=== PATIENT | male | born 1935 | race Caucasian/White ===

== ENCOUNTER 2021-04-08 10:07 | Emergency (ER) | payer MEDICARE, SELFPAY ==
--- NOTE | ~2021-04-08 | XR_ITS ---
EXAMINATION: XR ankle LT min 3V DATE: 04/08/2021 10:42 INDICATION: Medial left ankle pain TECHNIQUE: Anteroposterior, oblique, mortise, and lateral views of the left ankle were obtained. COMPARISON: None. FINDINGS: There is suggestion of pes planus and hindfoot valgus although this is not diagnostically evaluated o n nonweightbearing imaging. No acute traumatic malalignment. Very small now corticated nonunited avul mario fracture fragment along the dorsal rim of the navicula. No acute fracture. Mild osteoarthritis a t several of the tarsal metatarsal joints. Tiny plantar calcaneal spur. No ankle joint effusion. Sof t tissue swelling with subcutaneous edema about the ankle and distal lower leg. IMPRESSION: 1. Small no nonunited chronic avulsion fracture fragment along the dorsal rim of the navicula. No acu te osseous abnormality. 2. 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 Reviewed, dictated and finalized at location A. IMPRESSION: 1. Small no nonunited chronic avulsion fracture fragment along the dorsal rim o f the navicula. No acute osseous abnormality. 2. 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
[2021-04-08 10:12] VITALS: BP 166/72; PULSE 58; RESP 20; TEMP 36.7; O2SAT 98
--- NOTE | 2021-04-08 10:35 | ED.LOWEXIN ---
HPI - Extremity Injury (Lower) General Chief Complaint: Extremity Injury, Lower Stated Complaint: lt ankle pain Time Seen by Provider: 04/08/21 10:21 Source: patient and RN notes reviewed Mode of arrival: ambulatory Limitations: no limitations History of Present Illness HPI Narrative: Patient presents today complaining of sharp pain to the medial left ankle that started this morning as he was walking on the treadmill at the [facility]. Patient has been dealing with left ankle pain for the past 2 months under the care of his blueprint machine operator. Patient has been told that he has a tendon problem , causing his pain and has been wearing an ankle brace, mostly when he mows the grass, as this is when his ankle pain is exacerbated the most. States that prior to walking on the treadmill this morning, his ankle was pain-free. He did not fall this morning, but states the pain came out of nowhere. His ankle is essentially pain-free at rest, but increases with any weightbearing. Currently rates his pain 4/10 with weightbearing. Reports he called his blueprint machine operator this morning but was told they could not fit him in. He does have an appointment set up in 7 days. And he was told to seek treatment if he believed he had a serious injury. MD complaint: ankle injury Related Data Home Medications Medication Instructions Recorded Confirmed allopurinol 100 mg PO DAILY 04/08/21 04/08/21 amlodipine 5 mg PO DAILY 04/08/21 04/08/21 atenolol 50 mg PO DAILY 04/08/21 04/08/21 lisinopril 40 mg PO DAILY 04/08/21 04/08/21 Allergies Allergy/AdvReac Type Severity Reaction Status Date / Time No Known Allergies Allergy Unverified 04/08/21 10:17 Review of Systems Review of Systems: Narrative: CONSTITUTIONAL: Denies body aches, fever, chills, or sweats. EYES: Denies visual changes, redness, or discharge. ENT: Denies rhinorrhea, congestion, sore throat, or otalgia. CARDIOVASCULAR: Denies chest pain, palpitations, or edema. RESPIRATORY: Denies cough or dyspnea. GASTROINTESTINAL: Denies abdominal pain, nausea, vomiting, or diarrhea. GENITOURINARY: Denies dysuria or hematuria. SKIN: Denies rash, itching, or wounds. MUSCULOSKELETAL: Denies back pain, or myalgia. + Left ankle injury NEUROLOGIC: Denies headache, numbness, tingling, or weakness. PSYCH: Denies depression or anxiety. [facility] Past Medical History Medical History (Updated 04/08/21 @ 11:55 by Danelle Vega, [employer], ) Gout Hypertension Renal carcinoma Surgical History Surgical History (Updated 04/08/21 @ 11:55 by Danelle Vega, [facility], ) History of nephrectomy Comments At time of signature, I have reviewed and agree with nursing past medical, surgical, social and family history unless otherwise noted. Please see nursing chart for further information. There is no relevant family history pertinent to the presenting complaint Exam Narrative: Exam Narrative: GENERAL: Well-appearing, well-nourished, and in no acute distress. HEAD: Normocephalic, atraumatic. EYES: EOMI. No redness or drainage. Conjunctivae normal. ENT: Mucous membranes pink and moist. NECK: Normal AROM. CHEST: No respiratory distress. EXTREMITIES: Left ankle: Tenderness to the medial ankle. No other tenderness about the ankle or foot. Patient does have some 1+ edema to the ankle and foot, but this is bilateral and baseline per patient. Distal sensation intact. Capillary refill normal. Pedal pulse normal. Full AROM ankle and toes. No ecchymosis or erythema noted. SKIN: Warm, dry, no rash. Capillary refill normal. Normal skin turgor. NEURO: No focal deficits. Alert and oriented x3. Gait steady. PSYCH: Normal affect. No signs of depression or anxiety. Course Vital Signs Vital signs: Vital Signs Temperature 98.0 F 04/08/21 10:12 Pulse Rate 58 L 04/08/21 10:12 Respiratory Rate 20 04/08/21 10:12 Blood Pressure 166/72 H 04/08/21 10:12 Pulse Oximetry 98 04/08/21 10:12 Temperature 98.0 F 04/08/21 1
== END 2021-04-08 11:13 | disposition home or self-care (01) ==
PROVIDERS: Emergency Provider Nurse Practitioner
DX: M25.572 Pain in left ankle and joints of left foot (principal); M10.9 Gout, unspecified; I10 Essential (primary) hypertension; Z85.53 Personal history of malignant neoplasm of renal pelvis
CPT/HCPCS: 73610; 99213; G0463

== ENCOUNTER → 2021-04-18 09:29 | Outpatient (CLI) | payer MEDICARE, SELFPAY ==
--- NOTE | ~2021-04-18 | MR_ITS ---
EXAMINATION: MR ankle LT wo con DATE: 04/18/2021 10:42 INDICATION: Posterior tibial tendinitis. Left ankle pain. TECHNIQUE: Magnetic resonance imaging (MRI) of the left ankle was performed without intravenous contr ast. Sequences included sagittal PD-weighted FS FSE, sagittal PD-weighted FSE, coronal PD-weighted FS FSE, coronal PD-weighted FSE, axial PD-weighted FS FSE, and axial PD-weighted FSE. COMPARISON: Left ankle radiographs 04/08/2021 FINDINGS: Medial ankle ligaments: There are changes of prior sprain of superficial component of the deltoid ligament characterized by t hickening and increased signal intensity. The deep component of the deltoid ligament is intact. Lateral ankle ligaments: There are changes of prior sprain of anterior talofibular ligament characterized by thickening and in creased signal intensity. Calcaneofibular ligament and posterior talofibular ligament are intact. The anterior and posterior tibiofibular ligaments are intact. Tendons: The Achilles tendon is normal. The peroneal tendons and anterior ankle tendons are normal. Posterior tibial tendon is enlarged with increased signal intensity along much of its course. There is focal th inning of posterior tibial tendon at the level of the distal tibia. Plantar fascia: Normal. Bones/other: Pes planus is noted. Talar dome is normal. There is severe osteoarthritis of first and second tarsome tatarsal joints and lateral naviculocuneiform joint. There is mild osteoarthritis of talonavicular lanre int and some of the other midfoot joints. There is edema-like marrow signal intensity in medial malle olus, likely stress reaction. Fluid: There is a small ankle joint effusion. There is subcutaneous edema about the ankle. IMPRESSION: 1. Partial tear of posterior tibial tendon. 2. Pes planus. 3. Polyarticular osteoarthritis. 4. Changes of prior medial and lateral ankle sprains. Reviewed, dictated and finalized at location A.
== END ==
PROVIDERS: Visit Provider Podiatrist Foot & Ankle Surgery
DX: M76.822 Posterior tibial tendinitis, left leg (principal); M19.072 Primary osteoarthritis, left ankle and foot; M21.42 Flat foot [pes planus] (acquired), left foot
CPT/HCPCS: 73721

== ENCOUNTER 2021-06-11 13:46 | Emergency (ER) | payer MEDICARE, SELFPAY ==
[2021-06-11 13:51] VITALS: BP 163/93; PULSE 65; RESP 16; TEMP 36.6; O2SAT 98
--- NOTE | 2021-06-11 13:55 | ED.EAR ---
HPI - Ear Problem General Chief complaint: Ear Stated complaint: clogged ear Time Seen by Provider: 06/11/21 13:56 Source: patient and RN notes reviewed Mode of arrival: ambulatory Limitations: no limitations History of Present Illness HPI Narrative: 86-year-old male presents to the [facility] with complaints of a clogged right ear. Patient states that he sometimes gets earwax buildup and needs it removed however he reports some peroxide yesterday states he had everything out but needs it checked. Denies any headache, nausea, dizziness. No chest pain or shortness of breath. No abdominal pain. MD Complaint: decreased hearing (right ear) Location: right ear Related Data Home Medications Medication Instructions Recorded Confirmed allopurinol 100 mg PO DAILY 04/08/21 04/08/21 amlodipine 5 mg PO DAILY 04/08/21 04/08/21 atenolol 50 mg PO DAILY 04/08/21 04/08/21 lisinopril 40 mg PO DAILY 04/08/21 04/08/21 Allergies Allergy/AdvReac Type Severity Reaction Status Date / Time No Known Allergies Allergy Unverified 04/08/21 10:17 Review of Systems Review of Systems: All systems reviewed & are unremarkable except as noted in HPI and below Constitutional: Constitutional: Reports no additional constitutional complaints, Denies chills and Denies fever(s) Eyes: Eyes: Reports no additional eye complaints and Denies change in vision ENT: Reports as per HPI, Denies dysphagia, Denies vertigo, Denies dizziness, Denies nasal congestion and Denies sore throat Comments: Right eye decreased hearing Cardiovascular: Cardiovascular: Reports no additional cardiovascular complaints and Denies chest pain Respiratory: Respiratory: Reports no additional respiratory complaints Gastrointestinal: Gastrointestinal: Reports no additional gastrointestinal complaints Musculoskeletal: Musculoskeletal: Reports no additional musculoskeletal complaints Integumentary/Breasts: Skin/Breast: Reports system reviewed and no additional complaints, except as docu Neurologic: Reports system reviewed and no additional complaints, except as documented, Denies vertigo, Denies dizziness, Denies syncope, Denies headache(s), Denies focal weakness, Denies numbness and Denies weakness Psychiatric: Psychiatric: Reports no additional psychiatric complaints Allergic/Immunologic: Allergic/Immunologic: Reports no additional allergic/immunologic complaints PMFSH Past Medical History Medical History Gout Hypertension Renal carcinoma Surgical History Surgical History History of nephrectomy Comments At the time of my signature, I reviewed and agree with the nursing past medical, surgical, social, and family history. There is no relevant family history pertinent to the patient complaint. Exam Const: General: healthy appearing, no acute distress and alert Nutritional Appearance: well nourished Orientation/consciousness: patient oriented x3 Limitations: no limitations HENMT: Head: normal to inspection Ears: external ears normal, TM's normal bilaterally and Abnormal EAC present erythema on the right; no cerumen impaction, no excessive cerumen, no edema, no EA tenderness and no otic discharge Eyes: Conjunctivae: conjunctivae normal Pupils: Equal, round and reactive pupils present Neck: Neck: normal visual inspection, no lymphadenopathy and no meningeal signs Chest: Chest palpation & inspection: normal inspection of the chest Resp: Effort & Inspection: normal respiratory effort Auscultation: clear to auscultation bilaterally Cardio: Rate: regular rate Rhythm: regular rhythm Skin: General skin exam: normal color Rashes: no rashes Wounds: no wounds Neuro: General: patient oriented x3, moves all extremities, no meningeal signs and no focal motor deficits Speech: normal speech Gait exam (Neuro): Normal gait present Extrem: General: normal to inspection and no ped
== END 2021-06-11 14:09 | disposition home or self-care (01) ==
PROVIDERS: Emergency Provider Nurse Practitioner
DX: H91.91 Unspecified hearing loss, right ear (principal); S00.411A Abrasion of right ear, initial encounter; X58.XXXA Exposure to other specified factors, initial encounter; I10 Essential (primary) hypertension; M10.9 Gout, unspecified; Z85.528 Personal history of other malignant neoplasm of kidney; Z90.5 Acquired absence of kidney
CPT/HCPCS: 99213; G0463

== ENCOUNTER 2021-10-31 13:14 | Emergency (ER) | payer MEDICARE, SELFPAY ==
[2021-10-31 13:17] VITALS: BP 163/83; PULSE 83; RESP 16; TEMP 36.7; O2SAT 98
--- NOTE | 2021-10-31 13:25 | ED.NAVMDI ---
HPI - Nausea/Vomiting/Diarrhea General Chief complaint: Nausea/Vomiting/Diarrhea Stated complaint: DIARRHEA Time Seen by Provider: 10/31/21 13:27 Source: patient, RN notes reviewed and old records reviewed Mode of arrival: ambulatory Limitations: no limitations History of Present Illness HPI Narrative: 86 year old male who presents to [facility] care with complaints of diarrhea for the past 2-3 days with last stool about one hour ago which was watery. Patient denies any recent antibiotic use, no known fevers chills or sweats. Patient denies any yellow or greenish colored stools or any especially foul odored stools or any blood noted in his stools. He reports that he has had some nausea but denies any vomiting, admits to decreased appetite. He states that he has been drinking a lot of water the past few days, mucous membranes pink. He reports no past history of colitis or diverticulitis, no stated complaints of any pain to abdomen, reports some cramping with stools only. Patient reports that he has not eaten any solid foods for the past 2-3 days. Patient has had COVID vaccinations and Booster and Flu shot also. MD elicited complaint: nausea and diarrhea Location of pain: none Exacerbating factors: eating Relieving factors: none Associated symptoms: loss of appetite and other (nausea) Treatment prior to arrival: none Related Data Home Medications Medication Instructions Recorded Confirmed allopurinol 100 mg PO DAILY 04/08/21 10/31/21 amlodipine 5 mg PO DAILY 04/08/21 10/31/21 atenolol 50 mg PO DAILY 04/08/21 10/31/21 lisinopril 40 mg PO DAILY 04/08/21 10/31/21 Allergies Allergy/AdvReac Type Severity Reaction Status Date / Time No Known Allergies Allergy Verified 10/31/21 13:17 Review of Systems Review of Systems: CONSTITUTIONAL: Denies fever, chills, or sweats. EYES: Denies visual changes, redness, or discharge. ENT: Denies rhinorrhea, congestion, sore throat, or otalgia. CARDIOVASCULAR: Denies chest pain, palpitations, or edema. RESPIRATORY: Denies cough or dyspnea. GASTROINTESTINAL: Denies abdominal pain, positive for nausea,and diarrhea, denies any vomiting GENITOURINARY: Denies dysuria or hematuria. SKIN: Denies rash or itching. MUSCULOSKELETAL: Denies back pain, joint pain, or myalgia. NEUROLOGIC: Denies headache, numbness, or weakness. PSYCHIATRIC: Denies anxiety or depression. All systems reviewed & are unremarkable except as noted in HPI and below PMFSH Past Medical History Medical History (Updated 10/31/21 @ 14:39 by Candy Presley NP) Gout Hypertension Prostate cancer radiation seeds Renal carcinoma Surgical History Surgical History (Updated 10/31/21 @ 14:40 by Candy Presley NP) History of hernia surgery History of nephrectomy Family History Family History (Updated 10/31/21 @ 14:37 by Candy Presley NP) Father Diabetes mellitus Hypertension Sibling Renal carcinoma Social History Social History (Updated 10/31/21 @ 14:37 by Candy Presley NP) Smoking status: Never smoker Alcohol intake: current Substance use: never Substance use type: does not use Living arrangements: with family Additional living arrangements comments: elderly Occupation/Education: retired Gender identity (if verbalized by the patient): Male Comments At time of signature, agree with nursing past medical, surgical, social and family history. There is no relevant family history pertinent to the presenting complaint Exam Narrative: GENERAL: Well-appearing, well-nourished, and in no acute distress. HEAD: Normocephalic, atraumatic. EYES: PERRLA and EOMI. ENT: Nares clear, no rhinorrhea or epistaxis. Mucous membranes moist, skin turgor normal.TM's normal with good light reflex, throat pink with no lesions or exudates or any tonsil enlargement. NECK: Supple.no lymphadenopathy CHEST: Clear to auscultation. No respiratory distress. ADEEL 2 98% on room air HEART: Regular rate and rhythm. No
== END 2021-10-31 13:49 | disposition home or self-care (01) ==
PROVIDERS: Emergency Provider Registered Nurse
DX: K52.9 Noninfective gastroenteritis and colitis, unspecified (principal); M10.9 Gout, unspecified; I10 Essential (primary) hypertension; Z85.46 Personal history of malignant neoplasm of prostate; Z85.528 Personal history of other malignant neoplasm of kidney
CPT/HCPCS: 99213; G0463

== ENCOUNTER 2022-04-01 09:56 | Emergency (ER) | payer MEDICARE, SELFPAY ==
--- NOTE | 2022-04-01 10:50 | ED.UPPEXIN ---
HPI - Extremity Injury (Upper) General Chief Complaint: Extremity Injury, Upper Stated Complaint: Left elbow pain Time Seen by Provider: 04/01/22 10:47 Source: patient Mode of arrival: ambulatory Limitations: no limitations History of Present Illness HPI narrative: 86-year-old male presented for complaint of skin of left elbow with red swollen tender area. He states he was tender yesterday but noticed the redness today. States pain is minimal only to touch. History of gout. Denies injury. Denies decreased range of motion to the elbow. No other skin lesions reported. Related Data Home Medications Medication Instructions Recorded Confirmed allopurinol 100 mg tablet 100 mg PO DAILY 04/08/21 04/01/22 amlodipine 5 mg tablet 5 mg PO DAILY 04/08/21 04/01/22 atenolol 50 mg tablet 50 mg PO DAILY 04/08/21 04/01/22 lisinopril 40 mg tablet 40 mg PO DAILY 04/08/21 04/01/22 Allergies Allergy/AdvReac Type Severity Reaction Status Date / Time No Known Allergies Allergy Verified 04/01/22 10:27 Review of Systems Review of Systems: CONSTITUTIONAL: Denies body aches, fever, chills, or sweats. EYES: Denies visual changes ENT: Denies rhinorrhea, congestion CARDIOVASCULAR: Denies chest pain RESPIRATORY: Denies dyspnea. GASTROINTESTINAL: Denies abdominal pain, nausea, vomiting, or diarrhea. GENITOURINARY: Denies dysuria or hematuria. SKIN: red raised area to elbow MUSCULOSKELETAL: Denies back pain, joint pain, or myalgia. NEUROLOGIC: Denies headache, numbness, tingling, or weakness. [facility] Past Medical History Medical History Gout Hypertension Prostate cancer radiation seeds Renal carcinoma Surgical History Surgical History History of hernia surgery History of nephrectomy Family History Family History Father Diabetes mellitus Hypertension Sibling Renal carcinoma Social History Social History Smoking status: Never smoker Alcohol intake: current Substance use: never Substance use type: does not use Additional living arrangements comments: elderly Gender identity (if verbalized by the patient): Male Comments At time of signature, I have reviewed and agree with nursing past medical, surgical, social and family history unless otherwise noted. Please see nursing chart for further information. There is no relevant family history pertinent to the presenting complaint Exam Narrative: GENERAL: Well-appearing, well-nourished EYES: conjunctivae clear, and EOMI. ENT: Mucous membranes moist. Oropharynx without edema, erythema or lesions. CHEST: Clear to auscultation. HEART: Regular rate and rhythm. SKIN: Warm, dry. Left lateral elbow with approx 1cm diameter erythematous slightly raised patch with scaly skin, tender to palpation, full ROM to elbow, pulse palpable and sensation intact, cap refill <3 sec NEURO: Alert and oriented x3. PSYCH: Normal mood and affect Course Course Emergency Course: Patient is aware of diagnosis, understands and agrees to treatment plan. Anticipatory guidance given. Patient agrees to follow-up as directed and is aware of reasons to seek care at the emergency department. Portions of this record may have been created with voice recognition software Level of Care: Express Care Visit Vital Signs Vital signs: Reviewed MDM - Extremity Injury (Upper) MDM Narrative Medical decision making narrative: Advised supportive measures and signs/symptoms to go to the ER. Rx abx reviewed. Pt is appropriate for outpt treatment and f/u. Differential Diagnosis Differential diagnosis: Likely other (bursitis, gout, cellulitis, abscess) Discharge Plan Discharge Clinical Impression: Cellulitis Qualifiers: Site of cellulitis: extremity Site of celluliti
== END 2022-04-01 11:00 | disposition home or self-care (01) ==
PROVIDERS: Emergency Provider Nurse Practitioner Family
DX: L03.114 Cellulitis of left upper limb (principal); M10.9 Gout, unspecified; I10 Essential (primary) hypertension; Z85.46 Personal history of malignant neoplasm of prostate; Z85.528 Personal history of other malignant neoplasm of kidney
CPT/HCPCS: 99213; G0463

== ENCOUNTER 2023-06-17 20:06 | Observation (INO) | payer MEDICARE, SELFPAY ==
--- NOTE | ~2023-06-17 | CT_ITS ---
EXAMINATION: CT abdomen pelvis w con DATE: 06/17/2023 23:10 INDICATION: Red blood per rectum TECHNIQUE: Computed tomography (CT) of the abdomen and pelvis was performed with 100 mL Omnipaque-350 intravenous contrast. Automated exposure control and iterative reconstruction technique were employe d. The dose-length product was 975.27 mGy-cm. COMPARISON: None. FINDINGS: Lower thorax: Coronary artery calcifications. Aortic valve calcification. Dependent atelectasis. Liver: Left lobe cyst. Posterior right lobe scar. Biliary/Gallbladder: Cholelithiasis. No bile duct dilation. 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 Mild atrophy. Spleen: Granulomatous calcifications. Adrenals:No mass. Kidneys: The right kidney is surgically absent. Multiple right renal cysts, including cysts or masses of indeterminate density. Multiple right renal hypodensities that are too small to characterize but most likely represent simple cysts. Parapelvic cysts. Inflammatory change involving the renal pelvis and upper pole calyces. No hydronephrosis or obstructing stone. GI tract: Mild distal esophageal and gastric wall edema. Hyperdense material in the rectum. Possible mild hyperemia in the distal sigmoid and rectum, otherwise symmetric bowel wall enhancement. No small or large bowel dilation or wall thickening. Normal appendix. Diverticulosis without diverticulitis. Mesentery/Peritoneum: No ascites, mass, or free air. Retroperitoneum: No mass. Atherosclerotic abdominal aortic and/or arterial calcifications. Pelvis: Prostate seeds. Normal urinary bladder. Soft Tissues: Small uncomplicated fat-containing umbilical and inguinal hernias. Bones: No acute osseous finding. IMPRESSION: Mild esophagitis/gastritis. 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 Cholelithiasis without evidence of cholecystitis. Inflammatory changes involving right upper pole calyces and the right renal pelvis, may represent asc ending infection in the appropriate clinical context. Multiple indeterminate density left renal masses. Recommend nonemergent but timely CT or MRI without and with contrast, at which time the cystic pancreatic head lesion can also be further characterized. Hyperdense material in the rectum, possibly blood given history of bright red blood per rectum, with adjacent bowel mucosal hyperemia. Reviewed, dictated and finalized at location K. IMPRESSION: Mild esophagitis/gastritis. 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 Cholelithiasis without evidence of cholecystitis. Inflammatory changes involving right upper pole calyces and the right renal pel vis, may represent ascending infection in the appropriate clinical context. Multiple indeterminate density left renal masses. Recommend nonemergent but rin bill CT or MRI without and with contrast, at which time the cystic pancreatic he ad lesion can also be further characterized. Hyperdense material in the rectum, possibly blood given history of bright red b lood per rectum, with adjacent bowel mucosal hyperemia.
[2023-06-17 20:09] VITALS: BP 173/88; PULSE 75; RESP 22; TEMP 36.6; O2SAT 98
[2023-06-17 20:42] LABS: Basophils Absolute Auto 0.1 K/mm3 (0.0-0.1); Basophils Percent Auto 0.8 % (0.2-1.2); Eosinophils Absolute Auto 0.2 K/mm3 (0-0.3); Eosinophils Percent Auto 2.5 % (0-4.4); Hematocrit 50.9 % (42.0-52.0); Hemoglobin 16.5 g/dL (14.0-18.0); Immature Granulocyte Absolute 0.05 K/mm3 (0.00-0.031); Immature Granulocyte Percent A 0.6 % (0-0.5); Lymphocytes Absolute Auto 1.38 K/mm3 (0.9-3.2); Lymphocytes Percent Auto 15.9 % (18.3-44.2); Mean Corpuscular HGB Conc 32.4 g/dl (32-36); Mean Corpuscular Hemoglobin 29.7 pg (26-34); Mean Corpuscular Volume 91.5 fl (80-100); Mean Platelet Volume 9.5 fl (7.4-10.4); Monocytes Absolute Auto 0.9 K/mm3 (0.1-0.6); Monocytes Percent Auto 10.1 % (2.6-8.5); Neutrophils Absolute Auto 6.1 K/mm3 (1.3-6.7); Neutrophils Percent Auto 70.1 % (45.5-73.1); Platelet Count Result 165 k/mm3 (150-375); Red Blood Count 5.56 M/mm3 (4.6-6.20); Red Cell Distribution Width 14.8 % (11.5-14.5); White Blood Count 8.7 K/mm3 (4.5-10.0)
[2023-06-17 20:55] LABS: Alanine Aminotransferase 20 U/L (6-50); Albumin Level 4.3 g/dL (3.5-5.1); Alkaline Phosphatase 102 U/L (38-126); Anion Gap 8 mmol/L (8-16); Aspartate Amino Transferase 25 U/L (17-59); Bilirubin,Total 0.7 mg/dL (0.2-1.3); Blood Urea Nitrogen 24 mg/dL (9-20); Calcium 8.2 mg/dL (8.4-10.2); Carbon Dioxide 24 mmol/L (22-30); Chloride 104 mmol/L (98-107); Estimated CRCL calculation 34 ml/min; Estimated Glomerular Filt Rate 48; Glucose 137 mg/dL (65-110); Sodium 136 mmol/L (137-145)
[2023-06-17 21:24] VITALS: BP 150/90; PULSE 75; RESP 18; O2SAT 97
[2023-06-17 23:09] LABS: Prothrombin Time 14.1 Seconds (11.1-14.7)
[2023-06-17 23:10] LABS: Partial Thromboplastin Time 31.7 SECONDS (22.3-36.8)
[2023-06-17 23:29] VITALS: BP 156/89; PULSE 70; RESP 18; O2SAT 97
[2023-06-18] VITALS (8 sets, daily range): BP systolic 120–164; BP diastolic 76–99; PULSE 65–84; RESP 14–18; TEMP 36.2–36.3; O2SAT 96–100
--- NOTE | 2023-06-18 00:16 | ED.GENADULT ---
HPI - General Adult General Chief complaint: GI Bleed Stated complaint: Diarrhea/GI bleed Time Seen by Provider: 06/17/23 21:28 History of Present Illness HPI narrative: this is an 88-year-old male presenting with a GI bleed. Patient says that 1943 earlier today he thought he was going have diarrhea. He then had kesha red blood per rectum. He had 5 total bloodybowel movements before it tapered off. He has not had 1 here in the emergency department. Patient denies dizziness, lightheadedness chest pain difficulty breathing or abdominal pain. Says he has remote history of hemorrhoids but none recently. History of prostate cancer. No use of blood thinners. Related Data Home Medications Medication Instructions Recorded Confirmed allopurinol 100 mg tablet 100 mg PO DAILY 04/08/21 04/01/22 amlodipine 5 mg tablet 5 mg PO DAILY 04/08/21 04/01/22 atenolol 50 mg tablet 50 mg PO DAILY 04/08/21 04/01/22 lisinopril 40 mg tablet 40 mg PO DAILY 04/08/21 04/01/22 Allergies Allergy/AdvReac Type Severity Reaction Status Date / Time No Known Allergies Allergy Verified 06/17/23 21:34 [facility] Past Medical History Medical History Gout Hypertension Prostate cancer radiation seeds Renal carcinoma Surgical History Surgical History History of hernia surgery History of nephrectomy Family History Family History Father Diabetes mellitus Hypertension Sibling Renal carcinoma Social History Social History Smoking status: Never smoker Alcohol intake: current Substance use: never Substance use type: does not use Living arrangements: with family Additional living arrangements comments: elderly Occupation/Education: retired Gender identity (if verbalized by the patient): Male Exam Narrative: APPEARANCE: No apparent distress. Head: atraumatic. EYES: EOMI, NOSE: Atraumatic NECK: Trachea midline RESPIRATORY: No increased rate of breathing clear to auscultation CARDIOVASCULAR: RRR, No peripheral edema ABDOMINAL: Abdomen is distended but soft nontender no guarding or rebound. Rectal exam showed red blood per rectum with no active bleeding. MUSCULOSKELETAl: No obvious deformities NEURO: Alert. Moving 4/4 extremities SKIN:: Warm, dry. Normal color PSYCHIATRIC: Normal affect Course Vital Signs Vital signs: Vital Signs Temperature 98 F 06/17/23 20:09 Pulse Rate 75 06/17/23 20:09 Respiratory Rate 22 H 06/17/23 20:09 Blood Pressure 173/88 H 06/17/23 20:09 Pulse Oximetry 98 06/17/23 20:09 Oxygen Delivery Room Air 06/17/23 20:09 Temperature 98 F 06/17/23 20:09 Pulse Rate 69 06/18/23 04:18 Respiratory Rate 18 06/18/23 04:18 Blood Pressure 164/98 H 06/18/23 04:18 Pulse Oximetry 100 06/18/23 04:18 Oxygen Delivery Room Air 06/17/23 20:09 Medical Decision Making MDM Narrative Medical decision making narrative: -Course: 88-year-old male presenting with red blood per rectum. Vital signs . Hemoglobin trended from 16.5-15. CT abdomen pelvis showed hyperdense material in the rectum, possibly blood given history of bright red blood per rectum, with adjacent bowel mucosal hyperemia. Case was discussed with Dr. Hodgson will see the patient on an inpatient basis. Patient will be admitted to the hospitalist. -DDX includes but is not limited to: Hemorrhoids, diverticular bleed, colon cancer, colitis, cancer complication -Co-morbidities complicating care: advanced age, history of renal cancer, history of prostate cancer -Social determinants of health: retired. -Independent interpretation of studies: hemoglobin 16.5 -> 15.0 BUN 24/creatinine 1.4. No previous records in our system. CT abdomen pelvis: Mild esophagitis/gastritis. 2.5 cm
[2023-06-18 02:45] LABS: Hematocrit 45.1 % (42.0-52.0)
--- NOTE | 2023-06-18 07:08 | WPDGICN ---
Assessment and Plan Assessment and plan (1) Hematochezia: Code(s): K92.1 - Melena Status: Acute Assessment and Plan: This began yesterday evening. The blood was relatively bright red. Several bloody bowel movements. He has not been straining. He had not had rectal pain. He denies constipation. He has had abdominal pain. (2) Prostate cancer: Code(s): C61 - Malignant neoplasm of prostate Status: Acute Assessment and Plan: He has been treated with radiation implants ease. 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 Plan Colonoscopy will be scheduled for tomorrow. I have discussed with him the prep and the procedure and risks such as the possibilities of bleeding or perforation, the possible need for surgery to correct any complications. Follow blood counts serially. If necessary, transfusion but at this point is not a. Will be needed. GI Consult Note Consult date/time: 06/18/23 07:08 HPI: Dimitris Lopez is a 88 year old male who late yesterday afternoon had years to have a bowel movement. What he thought was diarrhea he noticed was nothing but blood in the toilet bowl. He had several more episodes 115 minutes later and and 2 a 3 more that were 4 other part with less blood. He cannot be certain whether he passed stool with the bowel movements. He has had no rectal pain or abdominal pain he is not on anticoagulants. He does take an aspirin tablet daily. He can not remember his last colonoscopy up believes it was sometime when he was in his 70s, had 10 years ago. He has no history of digestive diseases such as colitis. He denies vomiting or nausea. He has had no pain. He denies weight loss. Review of Systems Review of Systems: All systems reviewed & are unremarkable except as noted in HPI and below PMFSH Past Medical History Medical History (Updated 06/18/23 @ 09:52 by Dave Hodgson MD) Gout Hypertension Prostate cancer radiation seeds Renal carcinoma Surgical History Surgical History History of hernia surgery History of nephrectomy Family History Family History Father Diabetes mellitus Hypertension Sibling Renal carcinoma Social History Social History Smoking status: Never smoker Alcohol intake: current Drinks per week: 1 Substance use: never Substance use type: does not use Lack of Transportation: No Lack of Food: Never True Current Housing: I Have Housing Concerned About Future Housing: YES Difficulty Paying Gas/Electric Bills: No Difficulty Paying for Meds: No Currently Unemployed: No Education: Bachelor's Degree Difficulty w/ Childcare or Family Care: No Living arrangements: with family Additional living arrangements comments: elderly Occupation/Education: retired Gender identity (if verbalized by the patient): Male Spiritual care concerns: No Meds Home Medications and Allergies Home Medications Medication Instructions Recorded Confirmed Type allopurinol 100 mg tablet 100 mg PO DAILY 04/08/21 06/18/23 History amlodipine 5 mg tablet 5 mg PO DAILY 04/08/21 06/18/23 History atenolol 50 mg tablet 50 mg PO DAILY 04/08/21 06/18/23 History lisinopril 40 mg tablet 40 mg PO DAILY 04/08/21 06/18/23 History Allergies Allergy/AdvReac Type Severity Reaction Status Date / Time No Known Allergies Allergy Verified 06/17/23 21:34 Vital Signs Vital Signs - 24 hr 06/17/23 20:09 06/17/23 21:24 06/17/23 23:29 Temperature 36.6 C Pulse Rate 75 75 70 Respiratory Rate 22 H 18 18 Blood Pressure 173/88 H 150/90 H 156/89 H Pulse Oximetry 98 97 97 Oxygen Delivery Room Air 06/18/23 02:40 06/18/23 04:18 06/18/23 05:32 Temperature Pulse Rate 72 69 67 Respiratory
[2023-06-18 07:52] LABS: Hematocrit 44.6 % (42.0-52.0); Hemoglobin 14.6 g/dL (14.0-18.0)
--- NOTE | 2023-06-18 08:11 | PM.IMHP ---
H&P: HPI History of Present Illness Date/Time: 06/18/23 08:11 Chief Complaint: GI bleed Narrative: this is an 88-year-old male presenting with a GI bleed.? He noted bright red blood per rectum when he went to the bathroom yesterday evening. He reports total 5 bloody bowel movements since then. Patient denies? dizziness, lightheadedness chest pain difficulty breathing or abdominal pain.? Says he has remote history of hemorrhoids but none recently.? History of prostate cancer. ? No use of blood thinners. Review of Systems Review of Systems: - CONSTITUTIONAL: Denies weight loss, fever and chills. - HEENT: Denies changes in vision and hearing - RESPIRATORY: Denies SOB and cough. - CV: Denies palpitations and CP. - GI: Denies abdominal pain, nausea, vomiting and reports bloody diarrhea - : Denies dysuria and urinary frequency. - MSK: Denies myalgia and joint pain. - SKIN: Denies rash and pruritus. - NEUROLOGICAL: Denies headache and syncope. - PSYCHIATRIC: Denies recent changes in mood. Denies anxiety and depression. [facility] Past Medical History Medical History (Updated 06/18/23 @ 09:52 by Dave Hodgson MD) Gout Hypertension Prostate cancer radiation seeds Renal carcinoma Surgical History Surgical History History of hernia surgery History of nephrectomy Family History Family History Father Diabetes mellitus Hypertension Sibling Renal carcinoma Social History Social History Smoking status: Never smoker Alcohol intake: current Drinks per week: 1 Substance use: never Substance use type: does not use Lack of Transportation: No Lack of Food: Never True Current Housing: I Have Housing Concerned About Future Housing: YES Difficulty Paying Gas/Electric Bills: No Difficulty Paying for Meds: No Currently Unemployed: No Education: Bachelor's Degree Difficulty w/ Childcare or Family Care: No Living arrangements: with family Additional living arrangements comments: elderly Occupation/Education: retired Gender identity (if verbalized by the patient): Male Spiritual care concerns: No Meds Home Medications and Allergies Home Medications Medication Instructions Recorded Confirmed Type allopurinol 100 mg tablet 100 mg PO DAILY 04/08/21 06/18/23 History amlodipine 5 mg tablet 5 mg PO DAILY 04/08/21 06/18/23 History atenolol 50 mg tablet 50 mg PO DAILY 04/08/21 06/18/23 History lisinopril 40 mg tablet 40 mg PO DAILY 04/08/21 06/18/23 History Allergies Allergy/AdvReac Type Severity Reaction Status Date / Time No Known Allergies Allergy Verified 06/17/23 21:34 Vital Signs Vital Signs - 24 hr 06/17/23 20:09 06/17/23 21:24 06/17/23 23:29 Temperature 98 F Pulse Rate 75 75 70 Respiratory Rate 22 H 18 18 Blood Pressure 173/88 H 150/90 H 156/89 H Pulse Oximetry 98 97 97 Oxygen Delivery Room Air 06/18/23 02:40 06/18/23 04:18 06/18/23 05:32 Temperature Pulse Rate 72 69 67 Respiratory Rate 18 18 Blood Pressure 120/89 164/98 H 153/99 H Pulse Oximetry 98 100 97 Oxygen Delivery 06/18/23 07:06 Temperature Pulse Rate 74 Respiratory Rate 16 Blood Pressure 143/89 H Pulse Oximetry 99 Oxygen Delivery Exam Narrative: ?APPEARANCE: No apparent distress. Alert and oriented x3 Head: atraumatic. EYES:? EOMI, NOSE: Atraumatic RESPIRATORY: No increased rate of breathing clear to auscultation CARDIOVASCULAR: RRR,? No peripheral edema ABDOMINAL: ? Abdomen is distended but soft nontender no guarding or rebound. MUSCULOSKELETAl: No obvious deformities NEURO: Alert. Moving 4/4 extremities SKIN:: Warm, dry. Normal color PSYCHIATRIC: Normal affect H&P: Results Labs Labs: Short CBC 06/17/23 06/18/23 06/18/23 Range/Units 20:36 02:39 07:45 WBC
[2023-06-18] MEDS: SODIUM CHLORIDE 0.9% IV 1,000 ML 100 ML IV CONT ×2 (08:57→20:20)
[2023-06-18] MEDS: PANTOPRAZOLE SODIUM IV 40 MG VIAL IV PUSH (08:57)
[2023-06-18] MEDS: BISACODYL 5 MG TABLET EC 10 MG PO ×3 (12:57→20:19)
[2023-06-18] MEDS: polyethylene glycoL 3350 238 GM BOTTLE PO (16:20)
[2023-06-19] VITALS (11 sets, daily range): BP systolic 96–171; BP diastolic 58–92; PULSE 63–108; RESP 14–21; TEMP 36.3–36.9; O2SAT 97–100
[2023-06-19] MEDS: SODIUM CHLORIDE 0.9% IV 1,000 ML 100 ML IV CONT (06:03)
[2023-06-19 06:44] LABS: Basophils Absolute Auto 0.1 K/mm3 (0.0-0.1); Basophils Percent Auto 1.2 % (0.2-1.2); Eosinophils Absolute Auto 0.2 K/mm3 (0-0.3); Eosinophils Percent Auto 2.8 % (0-4.4); Hematocrit 40.1 % (42.0-52.0); Hemoglobin 13.1 g/dL (14.0-18.0); Immature Granulocyte Absolute 0.04 K/mm3 (0.00-0.031); Immature Granulocyte Percent A 0.6 % (0-0.5); Lymphocytes Absolute Auto 1.12 K/mm3 (0.9-3.2); Lymphocytes Percent Auto 16.2 % (18.3-44.2); Mean Corpuscular HGB Conc 32.7 g/dl (32-36); Mean Corpuscular Hemoglobin 29.8 pg (26-34); Mean Corpuscular Volume 91.3 fl (80-100); Monocytes Absolute Auto 0.7 K/mm3 (0.1-0.6); Neutrophils Absolute Auto 4.8 K/mm3 (1.3-6.7); Neutrophils Percent Auto 69.2 % (45.5-73.1); Platelet Count Result 162 k/mm3 (150-375); Red Blood Count 4.39 M/mm3 (4.6-6.20); Red Cell Distribution Width 14.6 % (11.5-14.5); White Blood Count 6.9 K/mm3 (4.5-10.0)
[2023-06-19 06:58] LABS: Alanine Aminotransferase 14 U/L (6-50); Albumin Level 3.1 g/dL (3.5-5.1); Alkaline Phosphatase 67 U/L (38-126); Anion Gap 3 mmol/L (8-16); Aspartate Amino Transferase 27 U/L (17-59); Bilirubin,Total 0.7 mg/dL (0.2-1.3); Blood Urea Nitrogen 16 mg/dL (9-20); Calcium 7.8 mg/dL (8.4-10.2); Carbon Dioxide 27 mmol/L (22-30); Chloride 106 mmol/L (98-107); Estimated CRCL calculation 37 ml/min; Estimated Glomerular Filt Rate 52; Glucose 89 mg/dL (65-110); Magnesium 2.2 mg/dL (1.6-2.3); Potassium 3.3 mmol/L (3.4-5.0); Sodium 136 mmol/L (137-145)
[2023-06-19] MEDS: MAGNESIUM CITRATE 300 ML BTL 150 ML PO (07:14)
[2023-06-19] MEDS: PANTOPRAZOLE SODIUM IV 40 MG VIAL IV PUSH (08:13)
[2023-06-19] MEDS: LACTATED RINGERS 1,000 ML 150 ML IV CONT (12:56)
--- NOTE | 2023-06-19 13:04 | PM.IMPN ---
Progress Note: A&P Assessment and Plan (1) Hematochezia: Code(s): K92.1 - Melena Status: Acute Plan 88-year-old male presents with bright red blood per rectum. No abdominal pain. Vitals stable hemoglobin 15 CT abdomen pelvis showed hyperdense material rectum possibly blood given the history with Aygestin bowel mucosal hyperemia. GI and then consulted. CKD stage 3 is creatinine 1.4 no previous level present his going for colonoscopy today to further evaluate. 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 Is going for colonoscopy this afternoon. No abdominal pain. Review of Systems Review of Systems: All systems reviewed & are unremarkable except as noted in HPI and below Exam Narrative: ?APPEARANCE: No apparent distress. Alert and oriented x3 Head: atraumatic. EYES:? EOMI, NOSE: Atraumatic RESPIRATORY: No increased rate of breathing clear to auscultation CARDIOVASCULAR: RRR,? No peripheral edema ABDOMINAL: ? Abdomen is distended but soft nontender no guarding or rebound. MUSCULOSKELETAl: No obvious deformities NEURO: Alert. Moving 4/4 extremities SKIN:: Warm, dry. Normal color PSYCHIATRIC: Normal affect Objective Data Vital Signs Vital Signs: Vital Signs - 24 hr 06/18/23 14:00 06/18/23 16:02 06/18/23 21:27 Temperature 97.3 F L 97.1 F L Pulse Rate 65 84 73 Respiratory Rate 14 18 Blood Pressure 135/86 151/76 H Pulse Oximetry 98 96 Oxygen Delivery 06/18/23 20:00 06/18/23 20:00 06/19/23 00:00 Temperature Pulse Rate 71 91 Respiratory Rate Blood Pressure Pulse Oximetry Oxygen Delivery Room Air 06/19/23 04:00 06/19/23 06:00 06/19/23 08:00 Temperature 98.5 F Pulse Rate 63 69 Respiratory Rate 14 Blood Pressure 150/80 H Pulse Oximetry 100 Oxygen Delivery Room Air 06/19/23 13:01 Temperature 97.3 F L Pulse Rate 84 Respiratory Rate 20 Blood Pressure 171/92 H Pulse Oximetry 98 Oxygen Delivery Room Air Intake/Output Intake/Output: Intake & Output 06/16/23 06/17/23 06/18/23 06/19/23 23:59 23:59 23:59 23:59 Intake Total 2053 1000 Balance 2053 1000 Meds/Results Medications: Active Medications Generic Name Dose Route Start Last Admin Trade Name Freq PRN Reason Stop Dose Admin Sodium Chloride 1,000 mls @ 100 mls/hr 06/18/23 07:10 06/19/23 06:03 Normal Saline Iv IV CONT 100 mls/hr .Q10H ARMIN Administration Lactated Ringer's 1,000 mls @ 150 mls/hr 06/19/23 12:35 06/19/23 12:56 Lr - Lactated Ringers Iv IV CONT 150 mls/hr .Q6H40M ARMIN Administration Pantoprazole Sodium 40 mg 06/18/23 09:00 06/19/23 08:13 Pantoprazole Sodium Iv 40 Mg Vial IV PUSH 40 mg QAM ARMIN Administration Radiology Results: ITS Impressions Abdomen/Pelvis CT 06/17/23 23:17 IMPRESSION: Mild esophagitis/gastritis. 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 Cholelithiasis without evidence of cholecystitis. Inflammatory changes involving right upper pole calyces and the right renal pelvis, may represent ascending infection in the appropriate clinical context. Multiple indeterminate density left renal masses. Recommend nonemergent but timely CT or MRI without and with contrast, at which time the cystic pancreatic head lesion can also be further characterized. Hyperdense material in the rectum, possibly blood given history of bright red blood per rectum, with adjacent bowel mucosal hyperemia. Labs Labs: Laboratory Results - last 24 hr 06/19/23 05:47 WBC 6.9 RBC 4.39 L Hgb 13.1 L Hct 40.1 L MCV 91.3 MCH 29.8 MCHC 32.7 RDW 14
--- NOTE | 2023-06-19 13:30 | WPDANESEPPF ---
Anes - Initial Pre Proc Eval Procedure: Operation Date: 06/19/23 14:00 Proposed Procedures p Colonoscopy - Dave Hodgson MD Date/Time: 06/19/23 13:30 Surgeon: Bing Simpson DO Pre Op Diagnosis: Finn Patient Data Age: 88 Gender: M Height: 1.75 m Weight: 90.72 kg Last Vital Signs Temp 97.3 F L 06/19/23 13:01 Pulse 84 06/19/23 13:01 Resp 20 06/19/23 13:01 BP 171/92 H 06/19/23 13:01 Pulse Ox 98 06/19/23 13:01 O2 Del Method Room Air 06/19/23 13:01 Allergies Allergy/AdvReac Type Severity Reaction Status Date / Time No Known Allergies Allergy Verified 06/19/23 12:57 Home Medications Medication Instructions Recorded Confirmed Type allopurinol 100 mg tablet 100 mg PO DAILY 04/08/21 06/18/23 History amlodipine 5 mg tablet 5 mg PO DAILY 04/08/21 06/18/23 History atenolol 50 mg tablet 50 mg PO DAILY 04/08/21 06/18/23 History lisinopril 40 mg tablet 40 mg PO DAILY 04/08/21 06/18/23 History Laboratory Tests 06/19/23 05:47 WBC 6.9 K/mm3 (4.5-10.0) RBC 4.39 L M/mm3 (4.6-6.20) Hgb 13.1 L g/dL (14.0-18.0) Hct 40.1 L % (42.0-52.0) MCV 91.3 fl (80-100) MCH 29.8 pg (26-34) MCHC 32.7 g/dl (32-36) RDW 14.6 H % (11.5-14.5) Plt Count 162 k/mm3 (150-375) MPV 10.0 fl (7.4-10.4) Immature Gran % (Auto) 0.6 H % (0-0.5) Neut % (Auto) 69.2 % (45.5-73.1) Lymph % (Auto) 16.2 L % (18.3-44.2) [place] % (Auto) 10.0 H % (2.6-8.5) Eos % (Auto) 2.8 % (0-4.4) Baso % (Auto) 1.2 % (0.2-1.2) Lymph # (Auto) 1.12 K/mm3 (0.9-3.2) [place] # (Auto) 0.7 H K/mm3 (0.1-0.6) Eos # (Auto) 0.2 K/mm3 (0-0.3) Baso # (Auto) 0.1 K/mm3 (0.0-0.1) Abs Immat Gran (auto) 0.04 H K/mm3 (0.00-0.031) Absolute Neuts (auto) 4.8 K/mm3 (1.3-6.7) Absolute Nucleated RBC 0.0 K/mm3 (0.0-0.012) Nucleated RBC % 0.0 % (0.0-0.2) Sodium 136 L mmol/L (137-145) Potassium 3.3 L mmol/L (3.4-5.0) Chloride 106 mmol/L (98-107) Carbon Dioxide 27 mmol/L (22-30) Anion Gap 3 L mmol/L (8-16) BUN 16 mg/dL (9-20) Creatinine 1.30 mg/dL (0.7-1.3) Estim Creat Clear Calc 37 ml/min Estimated GFR 52 L (59 - ) Glucose 89 mg/dL (65-110) Calcium 7.8 L mg/dL (8.4-10.2) Magnesium 2.2 mg/dL (1.6-2.3) Total Bilirubin 0.7 mg/dL (0.2-1.3) AST 27 U/L (17-59) ALT 14 U/L (6-50) Alkaline Phosphatase 67 U/L (38-126) Total Protein 6.0 L g/dL (6.3-8.2) Albumin 3.1 L g/dL (3.5-5.1) Patient hx anesthesia problems: none Family hx anesthesia problems: none Results Review: All pre-operative results and documents have been reviewed as part of the pre-operative evaluation. [facility] Past Medical History Medical History (Updated 06/18/23 @ 09:52 by Dave Hodgson MD) Gout Hypertension Prostate cancer radiation seeds Renal carcinoma Surgical History Surgical History History of hernia surgery History of nephrectomy Family History Family History Father Diabetes mellitus Hypertension Sibling Renal carcinoma Social History Social History Smoking status: Never smoker Alcohol intake: current Drinks per week: 1 Substance use: never Substance use type: does not use Lack of Transportation: No Lack of Food: Never True Current Housing: I Have Housing Concerned About Future Housing: YES Difficulty Paying Gas/Electric Bills: No Difficulty Paying for Meds: No Currently Unemployed: No Education: Bachelor's Degree Difficulty w/ Childcare or Family Care: No Living arrangements: with family Additional living arrangements comments: elderly Occupation/Education: retired Gender identity (if verbalized by the patient): Mal
--- NOTE | 2023-06-19 16:25 | PM.DS ---
DS: Admitting Diagnosis Discharge Date 06/19/2023 Admitting Diagnosis GI bleed DS: Discharge Diagnosis Discharge Diagnosis (1) Hematochezia: Code(s): K92.1 - Melena Status: Acute DS: Summary Hospital Course Hospital Course: 88-year-old male presents with bright red blood per rectum.? No abdominal pain.? Vitals stable hemoglobin 15 CT abdomen pelvis showed hyperdense material rectum possibly blood given the history with adjacent bowel mucosal hyperemia.? GI and then consulted.? CKD stage 3 is creatinine 1.4 no previous level present. Status post colonoscopy performed on 06/19/2023. Rectal polyp was removed. Has evidence of radiation proctitis. Mesalamine recommended and ordered. No further bloody bowel movement hemodynamically stable. 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 Alert and oriented x3 Head: atraumatic. EYES:? EOMI, NOSE: Atraumatic RESPIRATORY: No increased rate of breathing clear to auscultation CARDIOVASCULAR: RRR,? No peripheral edema ABDOMINAL: ? Abdomen is distended but soft nontender no guarding or rebound. MUSCULOSKELETAl: No obvious deformities NEURO: Alert. Moving 4/4 extremities SKIN:: Warm, dry. Normal color PSYCHIATRIC: Normal affect DS: Data Data Completed and Pending Pending studies at discharge: Pending at discharge 06/19/23 14:20 Surgical [PTH] Routine Labs on day of discharge: Labs from last 24 hours 06/19/23 05:47 WBC 6.9 RBC 4.39 L Hgb 13.1 L Hct 40.1 L MCV 91.3 MCH 29.8 MCHC 32.7 RDW 14.6 H Plt Count 162 MPV 10.0 Immature Gran % (Auto) 0.6 H Neut % (Auto) 69.2 Lymph % (Auto) 16.2 L [place] % (Auto) 10.0 H Eos % (Auto) 2.8 Baso % (Auto) 1.2 Lymph # (Auto) 1.12 [place] # (Auto) 0.7 H Eos # (Auto) 0.2 Baso # (Auto) 0.1 Abs Immat Gran (auto) 0.04 H Absolute Neuts (auto) 4.8 Absolute Nucleated RBC 0.0 Nucleated RBC % 0.0 Sodium 136 L Potassium 3.3 L Chloride 106 Carbon Dioxide 27 Anion Gap 3 L BUN 16 Creatinine 1.30 Estim Creat Clear Calc 37 Estimated GFR 52 L Glucose 89 Calcium 7.8 L Magnesium 2.2 Total Bilirubin 0.7 AST 27 ALT 14 Alkaline Phosphatase 67 Total Protein 6.0 L Albumin 3.1 L Procedures/Treatments: Colonoscopy 06/19/2023: Are few medium-sized internal hemorrhoids were seen in the rectum. The hemorrhoids were not actively bleeding. There was a single 5 mm polyp observed in the rectum. A cold forceps polypectomy was performed. The polyp was completely excised. Radiation proctitis. Imaging Radiologist's impression: ITS Impressions Abdomen/Pelvis CT 06/17/23 23:17 IMPRESSION: Mild esophagitis/gastritis. 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 Cholelithiasis without evidence of cholecystitis. Inflammatory changes involving right upper pole calyces and the right renal pelvis, may represent ascending infection in the appropriate clinical context. Multiple indeterminate density left renal masses. Recommend nonemergent but timely CT or MRI without and with contrast, at which time the cystic pancreatic head lesion can also be further characterized. Hyperdense material in the rectum, possibly blood given history of bright red blood per rectum, with adjacent bowel mucosal hyperemia. Discharge Plan Discharge Attending physician on discharge: Ector Pineda Consulting providers: Dave Hodgson Discharging Clinician: Ector Pineda Anticipated Discharge Date/Time: 06/19/23 16:24
--- NOTE | 2023-06-19 18:09 | PC.NURSE ---
[facility] pharmacy called to check Canasa frequency. they said that it is usually once a day. Dr. Hodgson notified and he states that this patient needs it twice a day for 1 week. Emi at [facility] pharmacy notified and verbalized understanding
== END 2023-06-19 16:40 | disposition home or self-care (01) ==
LOC: ANHED 06-18 00:26 → ANH3MEDSUR 06-18 08:01
PROVIDERS: Internal Medicine Gastroenterology; Admitting Provider Internal Medicine; Emergency Provider Emergency Medicine; Visit Provider Internal Medicine
PROC: 0DJD8ZZ Inspection of Lower Intestinal Tract, Via Natural or Artificial Opening Endoscopic (ICD-10-PCS; CPT 45378; principal; 2023-06-19 14:00)
DX: K64.8 Other hemorrhoids (principal); K62.1 Rectal polyp; K62.7 Radiation proctitis; C61 Malignant neoplasm of prostate; K86.2 Cyst of pancreas; M10.9 Gout, unspecified; E66.9 Obesity, unspecified; Z68.29 Body mass index [BMI] 29.0-29.9, adult; I10 Essential (primary) hypertension; K80.20 Calculus of gallbladder without cholecystitis without obstruction; F10.90 Alcohol use, unspecified, uncomplicated; Z85.528 Personal history of other malignant neoplasm of kidney
CPT/HCPCS: 45380; 36415; 74177; 80053; 83735; 85014; 85018; 85025; 85610; 85730; 86850; 86900; 86901; 88305; 96361; 96374; 96376; 99285; A9270; C9113; G0378; J2704; J7030; J7120; Q9967

== ENCOUNTER 2023-12-18 09:03 | Emergency (ER) | payer MEDICARE, SELFPAY ==
[2023-12-18 09:18] VITALS: BP 167/74; PULSE 62; RESP 18; TEMP 36.6; O2SAT 99
[2023-12-18 09:49] LABS: Basophils Absolute Auto 0.1 K/mm3 (0.0-0.1); Eosinophils Absolute Auto 0.3 K/mm3 (0-0.3); Eosinophils Percent Auto 4.3 % (0-4.4); Hematocrit 49.1 % (42.0-52.0); Hemoglobin 15.9 g/dL (14.0-18.0); Immature Granulocyte Absolute 0.03 K/mm3 (0.00-0.031); Immature Granulocyte Percent A 0.5 % (0-0.5); Lymphocytes Absolute Auto 0.88 K/mm3 (0.9-3.2); Lymphocytes Percent Auto 14.7 % (18.3-44.2); Mean Corpuscular HGB Conc 32.4 g/dl (32-36); Mean Corpuscular Hemoglobin 28.5 pg (26-34); Mean Corpuscular Volume 88.2 fl (80-100); Mean Platelet Volume 9.9 fl (7.4-10.4); Monocytes Absolute Auto 0.6 K/mm3 (0.1-0.6); Monocytes Percent Auto 9.7 % (2.6-8.5); Neutrophils Absolute Auto 4.2 K/mm3 (1.3-6.7); Neutrophils Percent Auto 69.8 % (45.5-73.1); Platelet Count Result 157 k/mm3 (150-375); Red Blood Count 5.57 M/mm3 (4.6-6.20); Red Cell Distribution Width 15.7 % (11.5-14.5)
[2023-12-18 09:50] LABS: Alanine Aminotransferase 15 U/L (6-50); Alkaline Phosphatase 100 U/L (38-126); Anion Gap 5 mmol/L (4-12); Aspartate Amino Transferase 26 U/L (17-59); Bilirubin,Total 0.7 mg/dL (0.2-1.3); Blood Urea Nitrogen 22 mg/dL (9-20); Calcium 8.7 mg/dL (8.4-10.2); Carbon Dioxide 28 mmol/L (22-30); Chloride 106 mmol/L (98-107); Estimated CRCL calculation 37 ml/min; Estimated Glomerular Filt Rate 52; Glucose 110 mg/dL (65-110); Potassium 4.1 mmol/L (3.4-5.0); Sodium 139 mmol/L (137-145)
[2023-12-18 10:21] VITALS: BP 166/89; PULSE 56; RESP 14; O2SAT 98
[2023-12-18 10:31] VITALS: BP 162/95; PULSE 57; RESP 16; O2SAT 98
--- NOTE | 2023-12-18 10:31 | ED.GIBLEED ---
HPI - GI Bleed General Chief complaint: GI Bleed <John Paul Mora APRN - Last Filed: 12/18/23 13:09> Stated complaint: rectal bleeding <John Paul Mora APRN - Last Filed: 12/18/23 13:09> Time Seen by Provider: 12/18/23 10:32 <John Paul oMra APRN - Last Filed: 12/18/23 13:09> Source: patient <John Paul Mora APRN - Last Filed: 12/18/23 13:09> Mode of arrival: ambulatory <John Paul Mora APRN - Last Filed: 12/18/23 13:09> Limitations: no limitations <John Paul Mora APRN - Last Filed: 12/18/23 13:09> History of Present Illness HPI Narrative: Dimitirs is an 88-year-old male patient presenting to the emergency room today with complaints of possible GI bleed. He reports he was working out this morning and got on a different exercise equipment and developed some pressure and the rectum and then went to the bathroom and noticed he passed some blood with a stool. Blood was right red blood. Denies any abdominal pain or rectum pain at this time. Has had 1 other stool while he has been in the ER and stated he passed only a very little blood at that time. History of hemorrhoids in the past. Seen Dr. Hodgson and had a scope done and hemorrhoid was seen. <John Paul Mora APRN - Last Filed: 12/18/23 13:09> Related Data Home medications: Home Medications Medication Instructions Recorded Confirmed allopurinol 100 mg tablet 100 mg PO DAILY 04/08/21 06/18/23 amlodipine 5 mg tablet 5 mg PO DAILY 04/08/21 06/18/23 atenolol 50 mg tablet 50 mg PO DAILY 04/08/21 06/18/23 lisinopril 40 mg tablet 40 mg PO DAILY 04/08/21 06/18/23 fluticasone propionate 50 1 spray intranasal DAILY 11/30/23 mcg/actuation nasal spray,suspension <John Paul Mora APRN - Last Filed: 12/18/23 13:09> Allergies/Adverse reactions: Allergies Allergy/AdvReac Type Severity Reaction Status Date / Time No Known Allergies Allergy Verified 11/30/23 13:10 <John Paul Mora APRN - Last Filed: 12/18/23 13:09> Review of Systems Review of Systems: Pertinent positives per HPI. Patient denies any fever, chills, rash, headache, visual changes, dizziness, cough, runny nose, sore throat, shortness of breath, chest pain, palpitations, nausea, vomiting, diarrhea, constipation, abdominal pain, or any urinary issues. <John Paul Mora APRN - Last Filed: 12/18/23 13:09> [facility] Past Medical History Medical History: Medical History Annual physical exam Encounter to establish care with new doctor Gout Gout Hypertension Prostate cancer radiation seeds Renal carcinoma <John Paul Mora APRN - Last Filed: 12/18/23 13:09> Surgical History Surgical History: Surgical History History of hernia surgery History of nephrectomy <John Paul Mora APRN - Last Filed: 12/18/23 13:09> Family History Family History: Family History Father Diabetes mellitus Hypertension Cerebrovascular accident Sibling Renal carcinoma Mother Cancer <John Paul Mora APRN - Last Filed: 12/18/23 13:09> Social History Social History: Social History Smoking status: Never smoker Alcohol intake: current Substance use: never Substance use type: does not use Lack of Transportation: No Lack of Food: Never True Current Housing: I Have Housing Concerned About Future Housing: YES Difficulty Paying Gas/Electric Bills: No Difficulty Paying for Meds: No Currently Unemployed: No Education: Bachelor's Degree Difficulty w/ Childcare or Family Care: No Living arrangements: with family Additional living arrangements comments: elderly Occupation/Education: retired Gender identity (if verbalized by the patient): Male
[2023-12-18 10:46] VITALS: BP 154/91; PULSE 57; RESP 16; O2SAT 97
[2023-12-18 11:01] VITALS: BP 156/88; PULSE 57; RESP 12; O2SAT 97
== END 2023-12-18 12:28 | disposition home or self-care (01) ==
PROVIDERS: Emergency Medicine; Emergency Provider Nurse Practitioner Family; PCP Family Medicine
DX: K64.8 Other hemorrhoids (principal); I10 Essential (primary) hypertension; Z85.46 Personal history of malignant neoplasm of prostate; Z85.528 Personal history of other malignant neoplasm of kidney
CPT/HCPCS: 36415; 80053; 85025; 86850; 86900; 86901; 99283

== ENCOUNTER 2024-02-14 16:20 | Emergency (ER) | payer MEDICARE, SELFPAY ==
--- NOTE | 2024-02-14 17:52 | ED.GENADULT ---
HPI - General Adult General Chief complaint: Urogenital-Male Stated complaint: BURNING URINATION/BLOOD IN URINE Time Seen by Provider: 02/14/24 17:55 Source: patient Mode of arrival: ambulatory Limitations: no limitations History of Present Illness HPI narrative: 88-year-old male patient presents to the [facility] with complaints of blood in the urine for the past 2-3 days. Patient states about 2 days ago he did have pain whenever he went to go in urinate but denies any pain yesterday and states today came back with pain with urination and noticed some drops of blood in the toilet when he urinated. Denies any low back pain, abdominal pain, nausea, vomiting or diarrhea. Denies any confusion. Patient does have history of prostate cancer and kidney cancer in the past. 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 Related Data Home Medications Medication Instructions Recorded Confirmed allopurinol 100 mg tablet 100 mg PO DAILY 04/08/21 02/14/24 amlodipine 5 mg tablet 5 mg PO DAILY 04/08/21 02/14/24 atenolol 50 mg tablet 50 mg PO DAILY 04/08/21 02/14/24 lisinopril 40 mg tablet 40 mg PO DAILY 04/08/21 02/14/24 fluticasone propionate 50 1 spray intranasal DAILY 11/30/23 02/14/24 mcg/actuation nasal spray,suspension Allergies Allergy/AdvReac Type Severity Reaction Status Date / Time No Known Allergies Allergy Verified 02/14/24 17:12 Review of Systems Review of Systems: CONSTITUTIONAL: Denies fever, chills, or sweats. EYES: Denies visual changes, redness, or discharge. ENT: Denies rhinorrhea, congestion, sore throat, or otalgia. CARDIOVASCULAR: Denies chest pain, palpitations, or edema. RESPIRATORY: Denies cough or dyspnea. GASTROINTESTINAL: Denies abdominal pain, nausea, vomiting, or diarrhea. GENITOURINARY: positive dysuria Positive hematuria. SKIN: Denies rash or itching. MUSCULOSKELETAL: Denies back pain, joint pain, or myalgia. NEUROLOGIC: Denies headache, numbness, or weakness. PSYCHIATRIC: Denies anxiety or depression. [facility] Past Medical History Medical History Annual physical exam Encounter to establish care with new doctor Gout Gout Hemorrhoids Hypertension Prostate cancer radiation seeds Radiation proctitis Renal carcinoma Surgical History Surgical History History of hernia surgery History of nephrectomy Family History Family History Father Diabetes mellitus Hypertension Cerebrovascular accident Sibling Renal carcinoma Mother Cancer Social History Social History Smoking status: Never smoker Alcohol intake: current Substance use: never Substance use type: does not use Lack of Transportation: No Lack of Food: Never True Current Housing: I Have Housing Concerned About Future Housing: YES Difficulty Paying Gas/Electric Bills: No Difficulty Paying for Meds: No Currently Unemployed: No Education: Bachelor's Degree Difficulty w/ Childcare or Family Care: No Living arrangements: with family Additional living arrangements comments: elderly Occupation/Education: retired Gender identity (if verbalized by the patient): Male Spiritual care concerns: No Agree to blood products: Yes Comments at the time of my signature I agree with nursing past medical history, surgical, social, and family history. There is no relevant family history pertinent to the presenting complaint. Exam Narrative: GENERAL: Well-appearing, well-nourished, and in no acute distress. HEAD: Normocephalic, atraumatic. EYES: PERRLA and EOMI. ENT: Nares clear, no rhinorrhea or epistaxis. Mucous membranes moist. NECK: Supple. No lymphadenopathy CHEST: Clear to auscultation. No respiratory distress. HEART: Regular rate and rhythm. No murmur
[2024-02-14 18:07] VITALS: BP 174/98; PULSE 65; RESP 16; TEMP 36.4; O2SAT 97
== END 2024-02-14 18:13 | disposition home or self-care (01) ==
PROVIDERS: Emergency Provider Nurse Practitioner Family; PCP Family Medicine
DX: R31.0 Gross hematuria (principal); M10.9 Gout, unspecified; I10 Essential (primary) hypertension; Z85.528 Personal history of other malignant neoplasm of kidney; Z85.46 Personal history of malignant neoplasm of prostate; Z90.5 Acquired absence of kidney; Z90.79 Acquired absence of other genital organ(s)
CPT/HCPCS: 81003; 87077; 87086; 87088; 87181; 99213; G0463

== ENCOUNTER 2024-03-16 08:15 | Emergency (ER) | payer MEDICARE, SELFPAY ==
--- NOTE | 2024-03-16 08:17 | ED.URI ---
HPI - URI/Sore Throat General Chief Complaint: Upper Respiratory Infection Stated Complaint: Sinus Infection Symptoms Time Seen by Provider: 03/16/24 08:16 Source: patient Mode of arrival: ambulatory Limitations: no limitations History of Present Illness HPI Narrative: Dimitris is an 88-year-old male patient presenting to the clinic today with complaints of sinus congestion. He reports symptoms have been going on for few days. He denies any fever, chills, body aches, does have slight cough occasionally. Nonproductive. States that the nasal drainage is clear 1 blowing his nose. Feels as though he is getting a sinus infection as he has pressure over the left maxillary sinus. MD elicited complaint: nasal congestion Related Data Home Medications Medication Instructions Recorded Confirmed allopurinol 100 mg tablet 100 mg PO DAILY 04/08/21 03/16/24 amlodipine 5 mg tablet 5 mg PO DAILY 04/08/21 03/16/24 atenolol 50 mg tablet 50 mg PO DAILY 04/08/21 03/16/24 lisinopril 40 mg tablet 40 mg PO DAILY 04/08/21 03/16/24 fluticasone propionate 50 1 spray intranasal DAILY 11/30/23 03/16/24 mcg/actuation nasal spray,suspension Allergies Allergy/AdvReac Type Severity Reaction Status Date / Time No Known Allergies Allergy Verified 02/25/24 13:12 Review of Systems Review of Systems: Pertinent positives per HPI. Patient denies any fever, chills, rash, headache, visual changes, dizziness, shortness of breath, chest pain, palpitations, nausea, vomiting, diarrhea, constipation, abdominal pain, or any urinary issues. [facility] Past Medical History Medical History Annual physical exam Burn Encounter to establish care with new doctor Gout Gout Hemorrhoids Hypertension Prostate cancer radiation seeds Radiation proctitis Rash Renal carcinoma Surgical History Surgical History History of hernia surgery History of nephrectomy Family History Family History Father Diabetes mellitus Hypertension Cerebrovascular accident Sibling Renal carcinoma Mother Cancer Social History Social History Smoking status: Never smoker Alcohol intake: current Drinks per week: 1 Substance use: never Substance use type: does not use Lack of Transportation: No Lack of Food: Never True Current Housing: I Have Housing Concerned About Future Housing: YES Difficulty Paying Gas/Electric Bills: No Difficulty Paying for Meds: No Currently Unemployed: No Education: Bachelor's Degree Difficulty w/ Childcare or Family Care: No Living arrangements: with family Additional living arrangements comments: elderly Occupation/Education: retired Gender identity (if verbalized by the patient): Male Spiritual care concerns: No Agree to blood products: Yes Comments At the time of my signature, I reviewed and agree with the nursing past medical, surgical, social, and family history. There is no relevant family history pertinent to the patient complaint. Exam Narrative: General: Well-developed, well nourished, in no apparent distress Head: Normocephalic, atraumatic Eyes: Pupils equally round and reactive to light bilaterally, EOM intact, sclera and conjunctive clear, no discharge, lids normal Ears: TMs intact and clear, ear canals clear, no drainage, grossly hearing normal. Nose: Nares patent, clear nasal discharge, no inflammation, left maxillary sinus tenderness. Mouth: Oral pharynx without lesions or masses, good dentition, MMM. Neck: Supple, trachea midline, no enlargement of anterior or posterior cervical nodes, no thyroid masses or goiter palpable. Cardio: Regular rate and rhythm, s1 and s2 normal, no murmur appreciated. Resp: Clear to auscultation bilaterally, no r
[2024-03-16 08:26] VITALS: BP 141/71; PULSE 97; RESP 16; TEMP 36.3; O2SAT 98
== END 2024-03-16 08:45 | disposition home or self-care (01) ==
PROVIDERS: Emergency Provider Nurse Practitioner Family; PCP Family Medicine
DX: J06.9 Acute upper respiratory infection, unspecified (principal); Z20.822 Contact with and (suspected) exposure to COVID-19; M10.9 Gout, unspecified; I10 Essential (primary) hypertension; Z85.46 Personal history of malignant neoplasm of prostate; Z85.528 Personal history of other malignant neoplasm of kidney
CPT/HCPCS: 87426; 99213; G0463

== ENCOUNTER 2024-08-04 08:05 | Emergency (ER) | payer MEDICARE, SELFPAY ==
--- NOTE | ~2024-08-04 | XR_ITS ---
Clinical Indication: Cough PA and lateral views of the chest: Comparison: 12/24/2013 Findings: The lungs are clear, without evidence of focal consolidation or pleural effusion. Cardiome diastinal silhouette is within normal limits. Bones and soft tissues are unremarkable. Impression: Normal chest. Reviewed, dictated and finalized at [facility]. [employer]ER Impression: Normal chest.
[2024-08-04 08:31] VITALS: BP 141/86; PULSE 61; RESP 16; TEMP 36.3; O2SAT 99
--- NOTE | 2024-08-04 08:36 | ED_ITS ---
HPI - URI/Sore Throat General Chief Complaint: Upper Respiratory Infection Stated Complaint: nasal drainage,cough Time Seen by Provider: 08/04/24 08:30 Source: patient, RN notes reviewed and old records reviewed Mode of arrival: ambulatory Limitations: no limitations History of Present Illness HPI Narrative: 89 year old male who presents to [facility] care with complaints of 2 day history of sinus congestion with drainage and cough which is intermittently productive. Patient reports his upper abdominal muscles are sore from coughing so much and cough is interrupting his sleep at night. Patient reports that he uses daily nasal spray and has been using cough drops for his cough. Patient reports no known fevers, chills or sweats. Patient states that he had some sore throat when it first started but has resolved. Patient reports no headache or any body aches. Patient reports history of renal and prostate cancer and hypertension. MD elicited complaint: cough, rhinorrhea, nasal congestion and other (initially sore throat which has resolved) Pertinent past history: other (rhinosinusitis) Onset (ago): day(s) (2) Consistency: constant Severity: moderate Able to tolerate fluids by mouth: Yes Treatments prior to arrival: aspirin Related Data Home Medications Medication Instructions Recorded Confirmed allopurinol 100 mg tablet 100 mg PO DAILY 04/08/21 08/04/24 atenolol 50 mg tablet 50 mg PO DAILY 04/08/21 08/04/24 lisinopril 40 mg tablet 40 mg PO DAILY 04/08/21 08/04/24 fluticasone propionate 50 1 spray intranasal DAILY 11/30/23 08/04/24 mcg/actuation nasal spray,suspension Allergies Allergy/AdvReac Type Severity Reaction Status Date / Time No Known Allergies Allergy Verified 08/04/24 09:03 Review of Systems Review of Systems: CONSTITUTIONAL: Denies malaise, chills, sweats, or fever. EYES: Denies visual changes, redness, or discharge. ENT: Reports rhinorrhea, congestion, sinus pain, no otalgia and initial sore throat which has resolved. CARDIOVASCULAR: Denies chest pain, palpitations, or edema. RESPIRATORY: Reports cough which is productive.? Denies acute dyspnea. GASTROINTESTINAL: Denies abdominal pain, nausea, vomiting, diarrhea, states upper abdominal muscles sore from all the coughing SKIN: Denies rash or itching. MUSCULOSKELETAL: Denies myalgia. NEUROLOGIC: Denies headache. All systems reviewed & are unremarkable except as noted in HPI and below PMFSH Past Medical History Medical History Encounter to establish care with new doctor Gout Gout Hemorrhoids Hypertension Prostate cancer radiation seeds Radiation proctitis Renal carcinoma Surgical History Surgical History History of hernia surgery History of nephrectomy Family History Family History Father Diabetes mellitus Hypertension Cerebrovascular accident Sibling Renal carcinoma Mother Cancer Social History Social History Smoking status: Never smoker Alcohol intake: current Drinks per week: 1 Alcohol use details: beer - 1x monthly Substance use: never Substance use type: does not use Do You Feel Safe in your Home?: Yes Lack of Transportation: No Lack of Food: Never True Current Housing: I Have Housing Concerned About Future Housing: YES Difficulty Paying Gas/Electric Bills: No Difficulty Paying for Meds: No Currently Unemployed: No Education: Bachelor's Degree Difficulty w/ Childcare or Family Care: No Living arrangements: with family Additional living arrangements comments: elderly Occupation/Education: retired Gender identity (if verbalized by the patient): Male Spiritual care concerns: No Agree to blood products: Yes Comments At time of signature, agree with nursing past medical, surgical, social and family history. There is no relevant family history pertinent to the presenting complaint Exam Narrative: GENERAL: Well-appearing, well-nourished, and in no acute distress. HEAD: Normocephalic EYES: PERRLA, conjunctivae clear ENT: Nares clear, turbinates edematous and erythematous, clear discharge. Mucous membranes moist. TM pearly joseph with dull light reflex bilaterally; no tragal tenderness. Oropharynx erythematous without lesions. Tonsils not enlarged and without exudate, no drooling, no hoarseness, no trismus, uvula midline.post nasal drainage NECK: Supple. No lymphadenopathy CHEST: Clear to auscultation, breath sounds equal. No wheezing, rhonchi, rales, or stridor. No respiratory distress, speaks in full sentences.productive cough SAO2 99% on room air HEART: Regular rate and rhythm. No murmur heard. SKIN: Warm, dry, no rash. NEURO: Alert and oriented x3. PSYCH: Normal mood and affect Course Course Emergency Course: Patient is aware of diagnosis, understands and agrees to treatment plan.? Anticipatory guidance given.? Patient agrees to follow-up as directed and is aware of reasons to seek care at the emergency department. Portions of this record may have been created with voice recognition software Level of Care: Express Care Visit Vital Signs Vital signs: Vital Signs Temperature 36.3 C L 08/04/24 08:31 Pulse Rate 61 08/04/24 08:31 Respiratory Rate 16 08/04/24 08:31 Blood Pressure 141/86 H 08/04/24 08:31 Pulse Oximetry 99 08/04/24 08:31 Temperature 36.3 C L 08/04/24 08:31 Pulse Rate 61 08/04/24 08:31 Respiratory Rate 16 08/04/24 08:31 Blood Pressure 141/86 H 08/04/24 08:31 Pulse Oximetry 99 08/04/24 08:31 Reviewed MDM - URI/Sore Throat MDM Narrative Medical decision making narrative: Differential diagnosis considered: Carty virus, strep pharyngitis, allergic rhinitis, upper respiratory tract infection, sinusitis, rhinosinusitis, nasopharyngitis. viral pharyngitis, otitis media, otitis externa, pneumonia, bronchitis, viral cough syndrome, viral syndrome, and influenza.? Exam findings show no acute concerns or changes; patient is non-toxic appearing and is in no distress.? Patient is appropriate for outpatient treatment and follow-up. Differential Diagnosis Differential diagnosis: Likely upper respiratory infection, sinusitis, viral infection, bronchitis and other (acute cough) Medical Records Attestation: I reviewed the patient's medical records. Lab Data Attestation: I reviewed the patient's lab results. Imaging Data Attestation: I personally reviewed and interpreted this imaging study as follows: My impression: Normal chest Radiologist's impression: [facility] [address] [facility] [place] [address] XRay Report Signed Patient: Dimitris Lopez : 1935 MR#: [id number] Age: 89 Acct:[id number] Loc: [id number] ADM Date: 08/04/24Attending Dr: Ordering Physician: Candy Presley APRN Date of Service: 08/04/24 Procedure(s): XR chest 2V Accession Number(s): [id number] cc: Candy Presley APRN; Franchesca Brice DO~ Clinical Indication: Cough PA and lateral views of the chest: Comparison: 12/24/2013 Findings: The lungs are clear, without evidence of focal consolidation or pleural effusion. Cardiomediastinal silhouette is within normal limits. Bones and soft tissues are unremarkable. Impression: Normal chest. Reviewed, dictated and finalized at location . [employer] DI[employer]ICIAN Dictated By: Ramos Kapoor MD 08/04/24 0849 Signed By: <Electronically signed by Ramos Kapoor MD in OV> Critical Care Time Critical Care Time Critical Care Time: No Discharge Plan Discharge Clinical Impression: URI with cough and congestion Patient Disposition: Home, Self-Care Condition: Stable Instructions: Antibiotic Form, Upper Respiratory Infection (ED) Additional Instructions: Increase fluids especially juices and water [id number] cough and cold medicine of your choice for your symptoms monitor for any fevers Cough tablets as directed for cough--do not bite, chew or suck on--swallow whole continue your nasal spray daily and use nasal saline as needed Steroids as directed--take with food heat to the face 20-30 minutes 4-6 times a day for pain Salt water gargles, throat lozenges or throat sprays as desired follow-up with PCP in 7-10 days or sooner if needed If your symptoms persist, change or worsen significantly before you can contact your personal physician then please, without delay, go to the emergency department for further evaluation. Follow-up with PCP in 7-10 days or sooner if needed Follow up with PCP soon in regards to your blood pressure which is elevated above threshold for referral. Blood pressure above 120/80 may indicate pre- hypertension. 141/86 Prescriptions: New methylprednisolone [Medrol (Corey)] 4 mg tablets,dose pack See Rx Instructions .ROUTE .COMPLEX Qty: 21 0RF Rx Instructions: orally per package directions benzonatate 200 mg capsule 200 mg PO TID PRN (Reason: cough) Qty: 20 0RF No Action allopurinol 100 mg tablet 100 mg PO DAILY lisinopril 40 mg tablet 40 mg PO DAILY atenolol 50 mg tablet 50 mg PO DAILY fluticasone propionate 50 mcg/actuation spray,suspension 1 spray intranasal DAILY Rx Instructions: administer into each nostril amlodipine 5 mg tablet See Rx Instructions .ROUTE .COMPLEX Qty: 90 1RF Dose Instruction: TAKE 1 TABLET BY MOUTH EVERY DAY IN THE MORNING Rx Instructions: TAKE 1 TABLET BY MOUTH EVERY DAY IN THE MORNING Follow-up/Referrals: Franchesca Brice DO [Primary Care Provider] - Time of Disposition: 09:10 Quality López Coma Scale Eyes: Open Verbal: Oriented and Alert Motor: Follows Commands López Coma Total Score: 15
== END 2024-08-04 09:12 | disposition home or self-care (01) ==
PROVIDERS: Emergency Provider Registered Nurse; PCP Family Medicine
DX: J06.9 Acute upper respiratory infection, unspecified (principal); I10 Essential (primary) hypertension; M10.9 Gout, unspecified; Z85.46 Personal history of malignant neoplasm of prostate; Z85.528 Personal history of other malignant neoplasm of kidney; Z92.3 Personal history of irradiation; Z90.5 Acquired absence of kidney
CPT/HCPCS: 71046; 99213; G0463

== ENCOUNTER 2024-09-21 09:05 | Outpatient (CLI) | payer MEDICARE, SELFPAY ==
[2024-09-21 12:41] LABS: Hematocrit 45.7 % (42.0-52.0); Mean Corpuscular HGB Conc 30.6 g/dl (32-36); Mean Corpuscular Volume 88.2 fl (80-100); Mean Platelet Volume 10.3 fl (7.4-10.4); Platelet Count Result 194 k/mm3 (150-375); Red Blood Count 5.18 M/mm3 (4.6-6.20); Red Cell Distribution Width 15.9 % (11.5-14.5); White Blood Count 7.1 K/mm3 (4.5-10.0)
[2024-09-21 13:27] LABS: Alanine Aminotransferase 13 U/L (6-50); Albumin Level 3.5 g/dL (3.5-5.1); Alkaline Phosphatase 92 U/L (38-126); Anion Gap 5 mmol/L (4-12); Aspartate Amino Transferase 30 U/L (17-59); Bilirubin,Total 0.7 mg/dL (0.2-1.3); Blood Urea Nitrogen 25 mg/dL (9-20); Calcium 8.1 mg/dL (8.4-10.2); Carbon Dioxide 30 mmol/L (22-30); Chloride 107 mmol/L (98-107); Cholesterol 160 mg/dL (0-200); Estimated Glomerular Filt Rate 40; Glucose 93 mg/dL (65-110); HDL Direct 29 mg/dL; Sodium 142 mmol/L (137-145); Triglycerides 113 mg/dL (<150)
[2024-09-21 13:37] LABS: LDL Cholesterol Direct 106 mg/dL
== END 2024-09-21 09:06 | disposition home or self-care (01) ==
PROVIDERS: PCP Family Medicine; Visit Provider Family Medicine
DX: Z79.899 Other long term (current) drug therapy (principal); E66.9 Obesity, unspecified; I10 Essential (primary) hypertension
CPT/HCPCS: 36415; 80053; 80061; 84443; 85027

== ENCOUNTER 2025-01-24 08:00 | Outpatient (CLI) | payer MEDICARE, SELFPAY ==
--- OUTSIDE RECORDS SUMMARY | 2025-01-24 08:04 | XMS_ITS | Clinical Summary ---
Author Organization [facility] Address [address] [place] [address] Care Team Providers Care Performance Solutions Specialist Name Role Phone Unavailable Primary Care Provider Unavailabl e Allergies No known active allergies Medications aspirin 325 mg tablet Take one by mouth one time per day in the morning 0 0 7 Active fluticasone propionate (FLONASE) 50 mcg/actuation nasal spray ADMINISTER 2 SPRAY INTO EACH NOSTRIL DAILY 48 mL 1 2 Active atenoloL (TENORMIN) 50 mg tabletIndications :Essential hypertension TAKE 1 TABLET BY MOUTH EVERY DAY 90 tablet 3 4 Active allopurinoL (ZYLOPRIM) 100 mg tablet TAKE 1 TABLET BY MOUTH EVERY DAY 90 tablet 3 4 Active lisinopriL (PRINIVIL,ZESTRIL ) 40 mg tablet TAKE 1 TABLET BY MOUTH EVERY DAY IN THE MORNING 90 tablet 3 4 Active amLODIPine (NORVASC) 5 mg tablet TAKE 1 TABLET BY MOUTH EVERY DAY IN THE MORNING 30 tablet 4 Active Active Problems Problem Noted Date Diagnosed Date Atopic rhinitis 08/05/2016 Overview (12/19/2016): ALLERGIC RHINITIS NOS Assessment & Plan (08/26/2023 11:38 AM MEDIA ASSISTANT): Still takes flonase prn Assessment & Plan (08/25/2022 4:11 PM MEDIA ASSISTANT): Using flonase as needed. Assessment & Plan (08/14/2021 11:24 AM MEDIA ASSISTANT): Well-controlled with FLONASE Assessment & Plan (08/15/2020 12:17 PM MEDIA ASSISTANT): Uses flonase. Assessment & Plan (08/16/2019 9:42 AM MEDIA ASSISTANT): He uses flonase as needed History of gout 08/05/2016 Overview (12/19/2016): Gout Assessment & Plan (08/26/2023 11:39 AM MEDIA ASSISTANT): No further gout attacks on allopurinol Assessment & Plan (08/25/2022 4:10 PM MEDIA ASSISTANT): Remains on allopurinol. Assessment & Plan (08/14/2021 10:54 AM MEDIA ASSISTANT): No episodes of gout on allopurinol Assessment & Plan (08/15/2020 12:16 PM MEDIA ASSISTANT): No episodes of gout on allopurinol. Assessment & Plan (08/16/2019 9:43 AM MEDIA ASSISTANT): Appears well managed: Continue current medications. Chronic kidney disease, stage III (moderate) Overview (12/19/2016): CKD stage 3 Assessment & Plan (08/26/2023 11:39 AM MEDIA ASSISTANT): Has one kidney, but has had good numbers. Assessment & Plan (08/25/2022 4:10 PM MEDIA ASSISTANT): eGFR of 41 Assessment & Plan (08/14/2021 10:53 AM MEDIA ASSISTANT): Last eGFR of 41. 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 Assessment & Plan (08/15/2020 12:16 PM MEDIA ASSISTANT): eGFR of 32, for one kidney Assessment & Plan (08/16/2019 9:42 AM MEDIA ASSISTANT): Labs Hypertension 08/01/2014 Overview (12/19/2016): HYPERTENSION NOS Assessment & Plan (08/26/2023 11:38 AM MEDIA ASSISTANT): See med list. No chest pain or dyspnea, no edema. Tolerating medications without side effects and is at goal BP today. Assessment & Plan (08/25/2022 4:10 PM MEDIA ASSISTANT): See med list. No chest pain or dyspnea, no edema. Tolerating medications without side effects and is at goal BP today. Assessment & Plan (08/14/2021 11:25 AM MEDIA ASSISTANT): Blood pressure stable at 140s/80s compared to last year on current medication regimen. Does endorse peripheral edema potentially 2/2 Amlodipine, but does not impair function. Assessment & Plan (08/15/2020 12:15 PM MEDIA ASSISTANT): See med list. No chest pain or dyspnea, no edema. Tolerating medications without side effects Appears well managed: Continue current medications. Assessment & Plan (08/16/2019 9:43 AM MEDIA ASSISTANT): Appears well managed: Continue current medications. Assessment & Plan (11/04/2018 1:53 PM MEDIA ASSISTANT): Elevated blood pressure readings yesterday likely due to stress and anxiety. Blood pressure is levels are fine here in the office today. Continue to monitor your blood pressure every few days and follow up if her blood pressure readings consistently are greater than 150/90. Assessment & Plan (10/21/2017 6:55 AM MEDIA ASSISTANT): Chronic-not quite at target yet.Stopped Metoprolol, ordered Atenolol. Continue to check blood pressures 1-3 times a week, random times, and return for follow up in one month. Would like blood pressure <140/90. Bring blood pressure list. Stay well hydrated. Decrease salt in diet. Resolved Problems Problem Noted Date Diagnosed Date Resolved Date Skin lesion 08/14/2021 08/25/2022 Overview (08/14/2021): One cm papule on nose bridge for 30-40 years, but recently has been increasing in size and vascularized. Assessment & Plan (08/14/2021 11:48 AM MEDIA ASSISTANT): One cm papule on nose bridge for 30-40 years, but recently has been increasing in size and vascularized. Recommendation to see dermatology. Macular degeneration 08/14/2021 021 Overview (08/14/2021): Followed by ophthalmology. Continues to receive injections [id number] Assessment & Plan (08/14/2021 11:36 AM MEDIA ASSISTANT): Followed by ophthalmology. Continues to receive injections [id number]. Acute left-sided low back pa in without sciatica 05/13/2019 08/16/2019 Assessment & Plan (05/13/2019 12:59 PM CDT): Take Medrol Dosepak as directed along with tizanidine in the evening before bedtime. Continue using ice to the site several times daily for 10-15 minutes. Try using [id number] Aspercreme with lidocaine to see if this gives some additional relief for your discomfort. If symptoms persist will consider were referral to physical therapy Encounter for screening 10/21/2017 12/0 09/2020 Assessment & Plan (08/15/2020 12:16 PM MEDIA ASSISTANT): One fall in the last year (tripped on vacuum cord) Assessment & Plan (08/16/2019 9:32 AM MEDIA ASSISTANT): Not a fall risk Assessment & Plan (11/17/2017 11:34 AM MEDIA ASSISTANT): Reviewed fall risk and fall assessment. Patient is NOT a susi. Assessment & Plan (10/21/2017 6:55 AM MEDIA ASSISTANT): Reviewed fall risk and fall assessment. Patient is NOT a susi. BMI 30.0-30.9,adult 10/21/2017 08/14/20 21 Assessment & Plan (08/15/2020 11:55 AM MEDIA ASSISTANT): BMI Follow-up includes: nutrition counseling and exercise counseling. Assessment & Plan (08/16/2019 9:27 AM MEDIA ASSISTANT): BMI Follow-up includes: nutrition counseling and exercise counseling. Assessment & Plan (05/13/2019 12:59 PM CDT): Eating a diet that is high in fresh fruits and vegetables as well as complex carbohydrates, lean meats and avoiding high fat foods and concentrated sugars is preferable and helps lead to a healthier BMI. Also adding in aerobic exercise daily will help lead to a lower BMI. Assessment & Plan (11/04/2018 1:53 PM MEDIA ASSISTANT): Eating a diet that is high in fresh fruits and vegetables as well as complex carbohydrates, lean meats and avoiding high fat foods and concentrated sugars is preferable and helps lead to a healthier BMI. Also adding in aerobic exercise daily will help lead to a lower BMI. Assessment & Plan (08/13/2018 9:01 AM MEDIA ASSISTANT): BMI Follow-up includes: nutrition counseling and exercise counseling. Assessment & Plan (03/18/2018 11:30 AM CDT): BMI Follow-up includes: education provided. Avoid fried foods and foods high in fat content. Eat more fresh fruits and vegetables Assessment & Plan (11/17/2017 11:35 AM MEDIA ASSISTANT): With BMI >30 counseled to try to work on diet, and exercise - limiting calories, carbohydrates, and daily sugar intake, increasing regular exercise daily. Assessment & Plan (10/21/2017 6:55 AM MEDIA ASSISTANT): With BMI >30 counseled to try to work on diet, and exercise - limiting calories, carbohydrates, and daily sugar intake, increasing regular exercise daily. Perioral dermatitis 04/01/2017 08/13/20 18 Overview (12/25/2017): Description: -Samara-occular dermatitis -Secondary to topical clobetasol use x2 years -D/c clobetasol -Counseled on diagnosis and possibilty of worsening rash with d/c of steroid Seborrheic eczema 04/01/2017 08/13/2018 Overview (12/25/2017): Description: -Recommended OTC HC PRN Personal history of prostate cancer 08/05/2016 08/26/2023 Overview (12/19/2016): MALIGN NEOPL PROSTATE Assessment & Plan (08/14/2021 10:53 AM MEDIA ASSISTANT): 17 years since brachytherapy. Assessment & Plan (08/15/2020 12:15 PM MEDIA ASSISTANT): 16 years since he had brachytherapy. Also had the right kidney removed 26 years. Assessment & Plan (08/16/2019 9:44 AM MEDIA ASSISTANT): Now 15 years out and no longer needing follow up per Dr. Velazquez. He had brachytherapy. Chronic kidney disease, stage I 08/01/2014 08/10/2017 Overview (12/17/2016): CERTIFIED EXECUTIVE CHEF KIDNEY DIS STAGE I Immunizations Immunization Administration Dates Next Due COVID-19 mRNA (KO-SU) 0.3 m L (30 mcg) vaccine (12 years and up) 06/20/2023 Influenza, Quad, Adjuvantate d, Intramuscular 06/21/2020 Influenza, Quadrivalent, Hig h Dose, Preservative Free, Intrr 06/20/2023,06/16/2022,08/14/2021 Influenza, Quadrivalent, Spl it, Preservative Free, Intramuscular 06/12/2017 Influenza, Split 06/14/2009 Influenza, Trivalent, Adjuva nted, Intramuscular 06/19/2019 Influenza, Trivalent, High D ose, Split, Preservative Free, Intramuscular 06/13/2018,06/14/2016,06/01/2016,07/15,06/14/2013,06/10/2012,06/09/2011 Influenza, Trivalent, IM (MDV) 06/06/2014 Influenza, Unspecified 06/14/2018,06/14/2017 Moderna SARS-CoV-2 Monovalen t Vaccination (12+ YRS) 08/08/2021,07/18/2021,01/12/2021,12/13 Moderna Sars-cov-2 Bivalent Vaccine 50 Mcg/0.5 mL (12+ YRS)-Blue/Rivero 12/17/2022 Pfizer SARS-CoV-2 Monovalent Vaccination (12+ Yrs) RIVERO-READY TO USE 04/13/2022 Pneumococcal Conjugate PCV 13 08/03/2015 Pneumococcal Polysaccharide PPV23 09/14/2004 Td, adsorbed 06/04/2009,09/14/1997 Tdap 08/13/2018 Surgical History Surgery Date Site/Laterality Comments OTHER SURGICAL HISTORY 1994 Cancer, renal cell: nephrectomy (r) OTHER SURGICAL HISTORY 2003 Cancer, prostate: Brachytherapy HERNIA REPAIR Hernia repair TONSILLECTOMY Tonsillectomy Medical History Medical History Date Comments 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, collin l cell Malignant neoplasm of prostate (HCC) 2003 Cancer, prostate Malignant neoplasm of kidney (HCC) Cancer, renal Macular degeneration Personal history of prostate cancer 08/05/2016 MALIGN NEOPL PROSTATE Family History Medical History Relation Name Comments Diabetes type II Father Diabetes -T ype II; Stroke Father Stroke; Cause o f : Stroke Cancer Mother Cancer -unknown ; Cause of : Cancer -unknown Kidney cancer Sister 2 Cancer -renal cell; Cause of : Cancer -renal cell Relation Name Status Comments Father (Age 62) Mother (Age 69) Sister 1 (Age 51) Sister 2 Social History Tobacco Use Types Packs/Day Years Used Date Smoking Tobacco: Never Smokeless Tobacco: Never Alcohol Use Standard Drinks/Week Comments Yes 0 (1 standard drink = 0.6 oz pur e alcohol) 1-2 drinks/ month PHQ-2 Answer Date Recorded PHQ-2 Total Score 0 08/26/2023 Sex and Gender Information Value Date Recorded Sex Assigned at Not on file Legal Sex Male 2:10 PM MEDIA ASSISTANT Gender Identity Not on file Sexual Orientation Not on file Obstetrics History Last Filed Vital Signs Vital Sign Reading Time Taken Comments Blood Pressure 120/80 08/26/2023 11:43 AM MEDIA ASSISTANT Pulse 57 08/26/2023 10:46 AM MEDIA ASSISTANT Temperature 36 C (96.8 F) 08/14/2021 10:37 AM MEDIA ASSISTANT Respiratory Rate 19 08/15/2020 11:52 AM MEDIA ASSISTANT Oxygen Saturation 98% 08/26/2023 10:46 AM MEDIA ASSISTANT Inhaled Oxygen Concentration - - Weight 92.1 kg (203 lb) 08/26/2023 10:46 AM MEDIA ASSISTANT Height 176 cm (5' 9.29 ) 08/26/2023 10:46 AM MEDIA ASSISTANT Body Mass Index 29.73 08/26/2023 10:46 AM MEDIA ASSISTANT Plan of Treatment Health Maintenance Due Date Last Done Comments Hepatitis B Screening 1953 Zoster Vaccine (1 of 2) 1987 Covid-19 Vaccine ( season) 2024 06/20/2023, 12/17/2022, 04/13/2022, Additional history exists Influenza Vaccine (#1) 2024 , 06/16/2022, 08/14/2021, Additional history exists Depression Screening 08/26/2024 08/26/2023, 08/25/2022, 08/14/2021, Additional history exists Fall Risk Assessment 08/26/2024 08/26/2023, 08/25/2022, 08/14/2021, Additional history exists Well Visit 65+ 08/26/2024 08/26/2023, 08/14, 08/14/2021, Additional history exists DTaP/Tdap/Td Vaccine (2 - Td or Tdap) 08/13/2028 08/13/2018, 06/04/2009, 09/14/1997 Pneumococcal vaccine 65+ Completed 08/03/2015, 09/2004 Insurance [facility] MEDICARE ADVANTAGE [facility]IC[facility] Address: [address] [address] [place] [address] UHC MEDICARE [facility]ANTAGE [facility] MEDICARE
--- OUTSIDE RECORDS SUMMARY | 2025-01-24 08:04 | XMS_ITS | Referral Summary ---
Author Organization [facility] Address [address] [place] [address] Care Team Providers Care Manufacturing Operator Name Role Phone Unavailable Primary Care Provider [...] NOS Assessment & Plan (08/26/2023 11:38 AM NATIONAL RECRUITER): Still takes flonase prn Assessment & Plan (08/25/2022 4:11 PM NATIONAL RECRUITER): Using flonase as needed. Assessment & Plan (08/14/2021 11:24 AM NATIONAL RECRUITER): Well-controlled with FLONASE Assessment & Plan (08/15/2020 12:17 PM NATIONAL RECRUITER): Uses flonase. Assessment & Plan (08/16/2019 9:42 AM NATIONAL RECRUITER): He uses flonase as needed History of gout 08/05/2016 Overview (12/19/2016): Gout Assessment & Plan (08/26/2023 11:39 AM NATIONAL RECRUITER): No further gout attacks on allopurinol Assessment & Plan (08/25/2022 4:10 PM NATIONAL RECRUITER): Remains on allopurinol. Assessment & Plan (08/14/2021 10:54 AM NATIONAL RECRUITER): No episodes of gout on allopurinol Assessment & Plan (08/15/2020 12:16 PM NATIONAL RECRUITER): No episodes of gout on allopurinol. Assessment & Plan (08/16/2019 9:43 AM NATIONAL RECRUITER): Appears well managed: Continue current medications. Chronic kidney disease, stage III (moderate) Overview (12/19/2016): CKD stage 3 Assessment & Plan (08/26/2023 11:39 AM NATIONAL RECRUITER): Has one kidney, but has had good numbers. Assessment & Plan (08/25/2022 4:10 PM NATIONAL RECRUITER): eGFR of 41 Assessment & Plan (08/14/2021 10:53 AM NATIONAL RECRUITER): Last eGFR of 41. 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 Assessment & Plan (08/15/2020 12:16 PM NATIONAL RECRUITER): eGFR of 32, for one kidney Assessment & Plan (08/16/2019 9:42 AM NATIONAL RECRUITER): Labs Hypertension 08/01/2014 Overview (12/19/2016): HYPERTENSION NOS Assessment & Plan (08/26/2023 11:38 AM NATIONAL RECRUITER): See med list. No chest pain or dyspnea, no edema. Tolerating medications without side effects and is at goal BP today. Assessment & Plan (08/25/2022 4:10 PM NATIONAL RECRUITER): See med list. No chest pain or dyspnea, no edema. Tolerating medications without side effects and is at goal BP today. Assessment & Plan (08/14/2021 11:25 AM NATIONAL RECRUITER): Blood pressure stable at 140s/80s compared to last year on current medication regimen. Does endorse peripheral edema potentially 2/2 Amlodipine, but does not impair function. Assessment & Plan (08/15/2020 12:15 PM NATIONAL RECRUITER): See med list. No chest pain or dyspnea, no edema. Tolerating medications without side effects Appears well managed: Continue current medications. Assessment & Plan (08/16/2019 9:43 AM NATIONAL RECRUITER): Appears well managed: Continue current medications. Assessment & Plan (11/04/2018 1:53 PM NATIONAL RECRUITER): Elevated blood pressure readings yesterday likely due to stress and anxiety. Blood pressure is levels are fine here in the office today. Continue to monitor your blood pressure every few days and follow up if her blood pressure readings consistently are greater than 150/90. Assessment & Plan (10/21/2017 6:55 AM NATIONAL RECRUITER): Chronic-not quite at target yet.Stopped Metoprolol, ordered [...] vascularized. Assessment & Plan (08/14/2021 11:48 AM NATIONAL RECRUITER): One cm papule on nose bridge for 30-40 years, but recently has been increasing in size and vascularized. Recommendation to see dermatology. Macular degeneration 08/14/2021 021 Overview (08/14/2021): Followed by ophthalmology. Continues to receive injections [id number] Assessment & Plan (08/14/2021 11:36 AM NATIONAL RECRUITER): Followed by ophthalmology. Continues to receive injections [id number]. Acute left-sided low back pa in without sciatica 05/13/2019 08/16/2019 Assessment & Plan (05/13/2019 12:59 PM CDT): Take Medrol Dosepak as directed along with tizanidine in the evening before bedtime. Continue using ice to the site several times daily for 10-15 minutes. Try using [id number] Aspercreme with lidocaine to see if this gives some additional relief for your discomfort. If symptoms persist will consider were referral to physical therapy Encounter for screening 10/21/2017 12/0 09/2020 Assessment & Plan (08/15/2020 12:16 PM NATIONAL RECRUITER): One fall in the last year (tripped on vacuum cord) Assessment & Plan (08/16/2019 9:32 AM NATIONAL RECRUITER): Not a fall risk Assessment & Plan (11/17/2017 11:34 AM NATIONAL RECRUITER): Reviewed fall risk and fall assessment. Patient is NOT a susi. Assessment & Plan (10/21/2017 6:55 AM NATIONAL RECRUITER): Reviewed fall risk and fall assessment. Patient is NOT a susi. BMI 30.0-30.9,adult 10/21/2017 08/14/20 21 Assessment & Plan (08/15/2020 11:55 AM NATIONAL RECRUITER): BMI Follow-up includes: nutrition counseling and exercise counseling. Assessment & Plan (08/16/2019 9:27 AM NATIONAL RECRUITER): BMI Follow-up includes: nutrition counseling and exercise [...] BMI. Assessment & Plan (11/04/2018 1:53 PM NATIONAL RECRUITER): Eating a diet that is high in fresh fruits and vegetables as well as complex carbohydrates, lean meats and avoiding high fat foods and concentrated sugars is preferable and helps lead to a healthier BMI. Also adding in aerobic exercise daily will help lead to a lower BMI. Assessment & Plan (08/13/2018 9:01 AM NATIONAL RECRUITER): BMI Follow-up includes: nutrition counseling and exercise counseling. Assessment & Plan (03/18/2018 11:30 AM CDT): BMI Follow-up includes: education provided. Avoid fried foods and foods high in fat content. Eat more fresh fruits and vegetables Assessment & Plan (11/17/2017 11:35 AM NATIONAL RECRUITER): With BMI >30 counseled to try to work on diet, and exercise - limiting calories, carbohydrates, and daily sugar intake, increasing regular exercise daily. Assessment & Plan (10/21/2017 6:55 AM NATIONAL RECRUITER): With BMI >30 counseled to try to [...] PROSTATE Assessment & Plan (08/14/2021 10:53 AM NATIONAL RECRUITER): 17 years since brachytherapy. Assessment & Plan (08/15/2020 12:15 PM NATIONAL RECRUITER): 16 years since he had brachytherapy. Also had the right kidney removed 26 years. Assessment & Plan (08/16/2019 9:44 AM NATIONAL RECRUITER): Now 15 years out and no longer needing follow up per Dr. Velazquez. He had brachytherapy. Chronic kidney disease, stage I 08/01/2014 08/10/2017 Overview (12/17/2016): [facility] DIRECTOR KIDNEY DIS STAGE I Immunizations Immunization Administration Dates Next Due COVID-19 mRNA ([employer] 0.3 m L (30 mcg) vaccine (12 [...] PPV23 09/14/2004 Td, adsorbed 06/04/2009,09/14/1997 Tdap 08/13/2018 Social History Tobacco Use Types Packs/Day Years Used Date Smoking Tobacco: Never Smokeless Tobacco: Never Alcohol Use Standard Drinks/Week Comments Yes 0 (1 standard drink = 0.6 oz pur e alcohol) 1-2 drinks/ month PHQ-2 Answer Date Recorded PHQ-2 Total Score 0 08/26/2023 Sex and Gender Information Value Date Recorded Sex Assigned at Not on file Legal Sex Male 2:10 PM NATIONAL RECRUITER Gender Identity Not on file Sexual Orientation Not on file Last Filed Vital Signs Vital Sign Reading Time Taken Comments Blood Pressure 120/80 08/26/2023 11:43 AM NATIONAL RECRUITER Pulse 57 08/26/2023 10:46 AM NATIONAL RECRUITER Temperature 36 C (96.8 F) 08/14/2021 10:37 AM NATIONAL RECRUITER Respiratory Rate 19 08/15/2020 11:52 AM NATIONAL RECRUITER Oxygen Saturation 98% 08/26/2023 10:46 AM NATIONAL RECRUITER Inhaled Oxygen Concentration - - Weight 92.1 kg (203 lb) 08/26/2023 10:46 AM NATIONAL RECRUITER Height 176 cm (5' 9.29 ) 08/26/2023 10:46 AM NATIONAL RECRUITER Body Mass Index 29.73 08/26/2023 10:46 AM NATIONAL RECRUITER Plan of Treatment Not on file Insurance [facility] MEDICARE ADVANTAGE [facility]
--- OUTSIDE RECORDS SUMMARY | 2025-01-24 08:04 | XMS_ITS | Clinical Summary ---
Author Organization [facility] Address [address] [place] [address] Phone Care Team Providers Care Fireman Helper Name Role Phone Cody Way MD Primary Care Provider [phone] Medications LISINOPRIL ORAL Take by mouth. Active ATENOLOL ORAL Take by mouth. Active AMLODIPINE BESYLATE (AMLODIPINE ORAL) Take by mouth. Active Social History Tobacco Use Types Packs/Day Years Used Date Smoking Tobacco: Never Assessed Sex and Gender Information Value Date Recorded Sex Assigned at Not on file Legal Sex Male 1:59 PM CDT Gender Identity Not on file Sexual Orientation Not on file Plan of Treatment Health Maintenance Due Date Last Done Comments DTAP/TDAP/TD VACCINES (1 - Tdap) 1954 PNEUMOCOCCAL VACCINE 50+ YEARS (1 of 1 - PCV) 04/06/19 87 ZOSTER VACCINE (1 of 2) 1987 RSV VACCINE (60+ or ) (1 - 1-dose 75+ series) 2012 INFLUENZA VACCINE (#1) 2024 Insurance MEDICARE PART A AND B [employer] [facility] Address: [id number] [place] [address] Care Teams Fireman Helper Relationship Specialty Start Date End Date Cody Way MD PCP - General Internal Medicine 06/15/13
--- OUTSIDE RECORDS SUMMARY | 2025-01-24 08:04 | XMS_ITS | Patient Health Record ---
Author Organization [facility] Address [address] [place] [address] Support Name Relationship Address Phone Dimitris Lopez Guarantor Unknown [phone] Allergies No Known Allergies Reason For Referral No Information Plan Of Treatment No Information Insurance Providers Payer Name Payer Address Payer Phone Subscriber Number Group Number Insured Name Patient Relationship to Insured Coverage Start Date Coverage End Date DO NOT USE - [employer] [address] [address] [place], [place] [id number] Dimitris Lopez Self - patient is the insured 7
[2025-01-24 10:05] LABS: Microalbumin Urine Random 38.9 mg/L (0-16.7)
[2025-01-24 10:06] LABS: Creatinine Urine 221.5 mg/dL; MALB Creatinine Ratio 17.6 mg/g (0-30)
[2025-01-24 10:49] LABS: Alanine Aminotransferase 19 U/L (6-50); Alkaline Phosphatase 89 U/L (38-126); Anion Gap 6 mmol/L (4-12); Aspartate Amino Transferase 30 U/L (17-59); Bilirubin,Total 0.6 mg/dL (0.2-1.3); Blood Urea Nitrogen 22 mg/dL (9-20); Calcium 8.6 mg/dL (8.4-10.2); Carbon Dioxide 30 mmol/L (22-30); Chloride 105 mmol/L (98-107); Cholesterol 178 mg/dL (0-200); Estimated Glomerular Filt Rate 46; Glucose 90 mg/dL (65-110); HDL Direct 32 mg/dL; Potassium 3.5 mmol/L (3.4-5.0); Sodium 141 mmol/L (137-145); Triglycerides 137 mg/dL (<150)
[2025-01-24 11:00] LABS: LDL Cholesterol Direct 105 mg/dL
== END 2025-01-24 08:01 | disposition home or self-care (01) ==
PROVIDERS: PCP Family Medicine; Visit Provider Nurse Practitioner
DX: E78.5 Hyperlipidemia, unspecified (principal); I12.9 Hypertensive chronic kidney disease with stage 1 through stage 4 chronic kidney disease, or unspecified chronic kidney disease; N18.9 Chronic kidney disease, unspecified
CPT/HCPCS: 36415; 80053; 80061; 82043

== ENCOUNTER 2025-08-01 13:34 | Outpatient (CLI) | payer MEDICARE, SELFPAY ==
[2025-08-01 18:44] LABS: Alanine Aminotransferase 17 U/L (6-50); Albumin Level 3.8 g/dL (3.5-5.1); Alkaline Phosphatase 99 U/L (38-126); Anion Gap 7 mmol/L (4-12); Aspartate Amino Transferase 33 U/L (17-59); Bilirubin,Total 0.6 mg/dL (0.2-1.3); Blood Urea Nitrogen 23 mg/dL (9-20); Calcium 8.4 mg/dL (8.4-10.2); Carbon Dioxide 29 mmol/L (22-30); Chloride 103 mmol/L (98-107); Cholesterol 162 mg/dL (0-200); Estimated Glomerular Filt Rate 42; Glucose 128 mg/dL (65-110); HDL Direct 29 mg/dL; Potassium 4.7 mmol/L (3.4-5.0); Sodium 139 mmol/L (137-145); Total Protein 6.6 g/dL (6.3-8.2); Triglycerides 198 mg/dL (<150)
[2025-08-01 19:17] LABS: MALB Creatinine Ratio 11.4 mg/g (0-30)
[2025-08-01 19:19] LABS: Prostate Specific Antigen < 0.1 ng/mL (< OR = 4.0)
== END 2025-08-01 13:35 | disposition home or self-care (01) ==
LOC: ANHGOSHLAB 13:35
PROVIDERS: PCP Family Medicine; Visit Provider Nurse Practitioner
DX: E78.5 Hyperlipidemia, unspecified (principal); C61 Malignant neoplasm of prostate; I12.9 Hypertensive chronic kidney disease with stage 1 through stage 4 chronic kidney disease, or unspecified chronic kidney disease; N18.30 Chronic kidney disease, stage 3 unspecified
CPT/HCPCS: 36415; 80053; 80061; 82043; 84153